=== PATIENT | female | born 1955 | race Caucasian/White ===

== ENCOUNTER 2016-11-28 21:55 | Inpatient (IN) | payer OTHER ==
[~2016-11-28] VITALS: Ht 160 cm; Wt 104.8 kg
[2016-11-28 22:18] VITALS: BP 128/94
--- NOTE | 2016-11-28 22:29 | NUR ---
PT TAKEN TO BED 2
--- NOTE | 2016-11-28 22:48 | NUR ---
Dr. Roy evaluating patient at bedside.
--- NOTE | 2016-11-28 22:49 | NUR ---
RT AT PT BEDSIDE.
[2016-11-28] MEDS ORDERED: IPRATROPIUM 0.02% 0.5 MG/2.5 ML NEBU INH ONE (22:50)
[2016-11-28] MEDS ORDERED: ALBUTEROL 0.083% 2.5 MG/3 ML NEBU INH ONE (22:50)
[2016-11-28] MEDS ORDERED: ASPIRIN 81 MG TAB.CHEW PO ONE (22:50)
[2016-11-28] MEDS ORDERED: CAPTOPRIL 12.5 MG TAB PO ONE ×2 (22:50)
[2016-11-28] MEDS ORDERED: FUROSEMIDE 100 MG/10 ML VIAL IVP ONE (22:50)
--- NOTE | 2016-11-28 22:50 | NUR ---
61 Y/O HERE C/O SOB, AND BACK PAIN THAT RADIATES TO CHEST. 02 SAT 89 % RT AT BED SIDE. CRACKLES HEARDED BILATERAL, AND EDEMA TO BILATERAL LOWER LEGS. PER PT SHA HAS A HX OF CHF. ER MD NOTIFIED. PT IN 02 NONREBREATHER MASK, 15 LT. PINK ALERT AND ORIEDTED X 4.
--- NOTE | 2016-11-28 23:00 | NUR ---
23OO PT REFUSED TO WEAR BIPAP AT THIS TIME. PLACED PT ON 3LNC.
--- NOTE | 2016-11-29 01:14 | NUR ---
1300 ml clear, straw colored urine emptied from F/C.
[2016-11-29] MEDS ORDERED: MORPHINE SULFATE 4 MG/ML SYR IVP ONE (02:10)
[2016-11-29] MEDS ORDERED: NACL 0.9% 1,000 ML IV SCH (02:14)
[2016-11-29] MEDS ORDERED: HYDROcodone/APAP 5/325 MG 1 TAB TAB PO PRN (02:15)
[2016-11-29] MEDS ORDERED: MORPHINE SULFATE 2 MG/ML SYR IVP PRN (02:15)
[2016-11-29] MEDS ORDERED: ONDANSETRON 4 MG/2 ML VIAL IVP PRN (02:15)
[2016-11-29] MEDS ORDERED: ACETAMINOPHEN 325 MG TAB PO PRN (02:15)
--- NOTE | 2016-11-29 02:45 | NUR ---
Patient will be admitted to care of DR ARDON. Admited to TELEMETRY. Will go to room 105 B. Belongings list completed. Report to KAYLIN HUNG.PT JOSUÉ BENJAMIN.
--- NOTE | 2016-11-29 03:52 | NUR ---
RECEIVED FROM ER PER PUA . MORBIDLY OBESE FEMAL ABLE TO VERBALIZE IN [place] WELL. DX. OF COPD EXACERBATION. ON 02 AT 2LPM/NC -02 SAT OF 92%. BAKER CATHETER IN PLACE AND DRAINING WELL WITH YELLOW COLORED URINE. IVF SITE TO LEFT UPPER ARM #24. CARE PLANS FOR THE NIGHT DISCUSSED WITH HER AND CALL LIGHT USE EXPLAINED TO HER. RAPID RESPONSE EXPLAINED. AFEBRILE. VITAL SIGNS 103/53 HR 92 02 SAT 92%. NO PAIN COMPLAINTS AT THIS TIME.
[2016-11-29 03:57] VITALS: BP_SYST 103; BP_SYST 120; BP_DIAS 53; BP_DIAS 69
[2016-11-29] MEDS ORDERED: PNEUMOCOCCAL VACCINE 23 MCG/0.5 ML VIAL IMVAC SCH (05:05)
[2016-11-29] MEDS ORDERED: INFLUENZA VIRUS VACCINE QUAD 0.5 ML SYR IMVAC SCH (05:05)
--- NOTE | 2016-11-29 07:37 | NUR ---
PT. NO COMPLAINTS DONE. VERBALIZES WELL. SNACK /SANDWICH GIVEN RT COMPLAINED VERY HUNGRY. ENDORSED TO THE NEXT RN FOR CONTINUITY OF CARE.
--- NOTE | 2016-11-29 07:40 | NUR ---
REPORT RECEIVED AT BEDSIDE FROM KAYLIN HUNG . PATIENT LYING IN BED, SEMI LANDON POSITION , WITH 02 VIA NC, LABORED BREATHING , DRY INTERMITTENT COUGH . DENIES CHEST PAIN , NO SOB NOTED. WITH IV CATH , INTACT, SL . PATIENT HAS BAKER CATH DRAINING WELL . BOTH LEGS WITH EDEMA. PLAN OF CARE DISCUSSED WITH , SHE VERBALIZED UNDERSTANDING. WILL CONTINUE MONITORING.
--- NOTE | 2016-11-29 07:45 | NUR ---
DR CRAMER AND RESIDENTS GROUP CAME TO SEE HER .
[2016-11-29 08:00] VITALS: BP 112/52
--- NOTE | 2016-11-29 08:45 | NUR ---
DR COYLE AND RT CALLED FOR BREATHING TX ORDERS , PATIENT C/O SOB . 02 SAT = 92%
[2016-11-29] MEDS ORDERED: methylPREDNISolone SS 125 MG in WATER STERILE 2 ML IV ONE (08:55)
[2016-11-29] MEDS ORDERED: methylPREDNISolone SS 125 MG/2 ML VIAL IVP SCH (09:30)
[2016-11-29] MEDS: ALBUTEROL SULFATE/IPRATROPIU 3 ML SOL IH PRN ×2 (09:32→16:55)
--- NOTE | 2016-11-29 09:47 | NUR ---
FAXED REVIEW TO [facility] FAX# [phone] PH# [phone]
--- NOTE | 2016-11-29 10:00 | NUR ---
PATIENT RESTING IN BED , WITH 02 VIA NC, NO SOB NOTED.
[2016-11-29] MEDS ORDERED: NITROGLYCERIN 0.4 MG TAB SL PRN (10:10)
[2016-11-29] MEDS ORDERED: DEXTROSE 50% 50 ML SYR IVP PRN (10:10)
--- NOTE | 2016-11-29 10:48 | NUR ---
ECHOCARDIOGRAM IN PROGRESS. Addendum: 11/29/16 at 1051 by Romelia Busby RN CORRECT : DARSHANA/LEG ARTERIAL AND VENOUS US IN PROGRESS
[2016-11-29] MEDS ORDERED: FUROSEMIDE 40 MG/4 ML VIAL IVP SCH (11:00)
[2016-11-29] MEDS: LEVOFLOXACIN 750 MG/D5W PREMIX 150 ML IV SCH (11:02)
[2016-11-29] MEDS: NACL 0.9% 1,000 ML IV SCH (11:02)
--- NOTE | 2016-11-29 11:15 | NUR ---
PATIENT HAS BEEN SCREENED AND CATEGORIZED HIGH NUTRITION RISK. PATIENT WILL BE SEEN WITHIN 1-2 DAYS OF ADMISSION. 11/29/16-11/30/[address]
[2016-11-29] MEDS: BLOOD GLUCOSE MONITORING 1 DEV DEV FS SCH ×3 (11:53→21:20)
[2016-11-29] MEDS: INSULIN ASPART SLIDING SCALE 100 UNITS/ML VIAL SUBQ PRN ×3 (11:54→21:25)
[2016-11-29 12:00] VITALS: BP 137/76
--- NOTE | 2016-11-29 12:30 | NUR ---
PATIENT TAKING HER LUNCH , GOOD APPETITE NOTED. NO SOB , DENIES CHEST PAIN.
[2016-11-29] MEDS: GABAPENTIN 300 MG CAP PO SCH ×2 (13:33→17:01)
[2016-11-29] MEDS: ALBUTEROL SULFATE/IPRATROPIU 3 ML SOL IH SCH ×2 (13:49→19:17)
[2016-11-29 16:00] VITALS: BP 104/66
[2016-11-29] MEDS: metFORMIN 850 MG TAB PO SCH (17:01)
--- NOTE | 2016-11-29 18:35 | NUR ---
COPY OF EKG GIVEN TO DR. TERELL AGARWAL
[2016-11-29] MEDS: BUDESONIDE 0.5 MG/2 ML NEBU INH SCH (19:17)
--- NOTE | 2016-11-29 19:26 | NUR ---
PT NOTED RECEIVING BREATHING TREATMENT, NOTED TOLERATING WELL. NO DISTRESS NOTED.
--- NOTE | 2016-11-29 19:28 | NUR ---
RECEIVED PT REPORT FROM ADA RN FOR CONTINUITY OF CARE AT BEDSIDE, PT STABLE. NO RESPIRATORY DISTRESS NOTED, NASAL CANNULA ON.
--- NOTE | 2016-11-29 19:43 | NUR ---
REPORT GIVEN AT BEDSIDE TO KAYLIN ENGEL FOR CONTINUITY OF CARE.
--- NOTE | 2016-11-29 19:57 | NUR ---
SHIFT ASSESSMENT DONE AT THIS TIME. PT IS A/O X3, NO CONFUSION NOTED. PT FOLLOWS COMMANDS AND IS COOPERATIVE. NO ACUTE RESPIRATORY DISTRESS NOTED. PT VITAL SIGNS ARE STABLE, ON 3L NASAL CANNULA WITH OXYGEN SATURATION AT 91%. PT DENIES SOB OR NAUSEA. STATES TO HAVE LOWER LEG AND BACK PAIN, WILL PROVIDE PAIN MEDICATION. LUNG SOUNDS ARE RHONCHI. BOWEL SOUNDS ARE ACTIVE. PT IV ACCESS IS TO LEFT UPPER ARM, #24G IS PATENT AND INTACT. NOTED ALL SKIN INTACT, ONLY BRUISE TO LEFT UPPER THIGH. BAKER CATHETER IN PLACE, DRAINING BY GRAVITY OF YELLOW URINE. SCD'S IN PLACE. CALL LIGHT WITHIN REACH. DISCUSSED PLAN OF CARE WITH PT, VERBALIZED UNDERSTANDING. ALL NEEDS MET. WILL CONTINUE TO MONITOR PT. SAFETY PRECAUTIONS AND FALL RISK IN PLACE.
[2016-11-29 20:00] VITALS: BP 116/63
[2016-11-29] MEDS: QUEtiapine FUMARATE 100 MG TAB PO SCH (21:21)
[2016-11-29] MEDS: CARVEDILOL 3.125 MG TAB PO SCH (21:21)
[2016-11-29] MEDS: PARoxetine 20 MG TAB PO SCH (21:21)
--- NOTE | 2016-11-29 21:21 | NUR ---
PROVIDED PT WITH PO SCHEDULED MEDICATIONS, PAIN MED AND INSULIN COVERAGE PER MD ORDERS. PT BLOOD GLUCOSE IS 326, NO SYMPTOMS SHOWN. PT REMAINS STABLE AND TOLERATED PO MEDICATIONS. SEE eMAR. WILL CONTINUE TO MONITOR. CALL LIGHT WITHIN REACH.
[2016-11-30] VITALS (7 sets, daily range): BP systolic 97–125; BP diastolic 50–61
--- NOTE | 2016-11-30 00:10 | NUR ---
VITAL SIGN REMAIN STABLE, PT OXYGEN SATURATION IS 93%, NASAL CANNULA STILL IN PLACE. NO RESPIRATORY DISTRESS. CALL LIGHT WITHIN REACH.
--- NOTE | 2016-11-30 00:50 | NUR ---
PT SLEEPING COMFORTABLY, NO RESPIRATORY DISTRESS NOTED. NASAL CANNULA IN PLACE.
[2016-11-30] MEDS: ALBUTEROL SULFATE/IPRATROPIU 3 ML SOL IH SCH ×4 (01:15→19:33)
--- NOTE | 2016-11-30 01:55 | NUR ---
PT SLEEPING, NASAL CANNULA IN PLACE. NO DISTRESS.
--- NOTE | 2016-11-30 03:40 | NUR ---
VITAL SIGNS REMAIN STABLE, PT REMAINS ON 3L NC WITH OXYGEN SATURATION AT 92%. NO ACUTE DISTRESS NOTED. WILL CONTINUE TO MONITOR.
[2016-11-30] MEDS: BLOOD GLUCOSE MONITORING 1 DEV DEV FS SCH ×4 (05:56→21:44)
--- NOTE | 2016-11-30 05:56 | NUR ---
PROVIDED PT WITH INSULIN PER SLIDING SCALE MD ORDERS, PT BLOOD GLUCOSE IS 360. PT REMAINS STABLE, NO ACUTE DISTRESS NOTED.
[2016-11-30] MEDS: INSULIN ASPART SLIDING SCALE 100 UNITS/ML VIAL SUBQ PRN ×4 (05:58→21:48)
--- NOTE | 2016-11-30 07:33 | NUR ---
ENDORSED PT TO AVERLIE RN IN STABLE CONDITION FOR CONTINUITY OF CARE AT BEDSIDE.
--- NOTE | 2016-11-30 07:40 | NUR ---
RECEIVED REPORT FROM THE ARTS ADMINISTRATOR NURSE AT BEDSIDE FOR CONTINUITY OF CARE. PATIENT IS AWAKE, ALERT, ORIENTEDX4. IV ON THE LEFT UPPER ARM, INTACT AND PARENT. IV FLUID INFUSING WELL. RT AT BEDSIDE GIVING BREATHING TREATMENT. ON 3L O2 VIA NASAL CANNULA. NO S/S SOB. SKIN INTACT. BP WAS LOW 97/58. ELEVATED LEGS AND WILL RECHECK BP. OTHER VITALS ARE WITHIN THE NORMAL LIMIT. NO S/S OF DISTRESS. SAFETY MEASURE CHECKED AND WILL CONTINUE TO MONITOR. CALL LIGHT WITHIN REACH.
[2016-11-30] MEDS: BUDESONIDE 0.5 MG/2 ML NEBU INH SCH ×2 (07:46→19:35)
[2016-11-30] MEDS ORDERED: methylPREDNISolone SS 40 MG/ML VIAL IVP SCH (08:00)
[2016-11-30] MEDS ORDERED: methylPREDNISolone SS 40 MG in WATER STERILE 1 ML IV SCH (08:00)
--- NOTE | 2016-11-30 08:30 | NUR ---
RECHECKED BLOOD PRESSURE 106/50. HELP LISINOPRIL AND CARVEDILOL DUE TO DECREASE BLOOD PRESSURE. WILL CONTINUE TO MONITOR. OTHER DUE MEDS GIVEN, PATIENT TOLERATED WELL. FAMILY AT BEDSIDE. CALL LIGHT WITHIN REACH.
[2016-11-30] MEDS: ASPIRIN 81 MG TAB.CHEW PO SCH (08:54)
[2016-11-30] MEDS: metFORMIN 850 MG TAB PO SCH ×2 (08:54→17:10)
[2016-11-30] MEDS: GABAPENTIN 300 MG CAP PO SCH ×3 (08:54→17:09)
[2016-11-30] MEDS: ATORVASTATIN 20 MG TAB PO SCH (08:54)
[2016-11-30] MEDS: LISINOPRIL 10 MG TAB PO SCH (08:56)
[2016-11-30] MEDS: FUROSEMIDE 40 MG/4 ML VIAL IVP SCH (08:57)
[2016-11-30] MEDS: CARVEDILOL 3.125 MG TAB PO SCH ×2 (08:57→21:34)
[2016-11-30] MEDS ORDERED: hePARIN / DEXT 5% PREMIX 250 ML IV SCH (09:15)
[2016-11-30] MEDS ORDERED: HEPARIN PER PHARMACY MC PRN ×2 (09:15→13:00)
--- NOTE | 2016-11-30 09:22 | NUR ---
FAXED REVIEW TO [facility] FAX# [phone] # [phone] MI[place] EXT [phone]
[2016-11-30] MEDS: NACL 0.9% 1,000 ML IV SCH (10:25)
--- NOTE | 2016-11-30 10:30 | NUR ---
PATIENT IS AWAKE AND TAKEN TO CT SCAN.
--- NOTE | 2016-11-30 10:40 | NUR ---
P.T. NOTES RECEIVED P.T. EVAL ORDER, CHART REVIEWED, ACUTE (+) DVT TO LT LE, MEDS REVIEWED AND NO ANTICOAGULANTS GIVEN YET SINCE US FINDINGS, DISCUSSED WITH CHARGE NURSE AND MD MADE AWARE OF DVT FINDING WILL HOLD P.T. EVAL UNTIL MEDS GIVEN. NRSG MADE AWARE. PVE
--- NOTE | 2016-11-30 11:00 | NUR ---
DUE MED GIVEN. GLU LEVEL CHECKED ELEVATED TO 368. INSULIN COVERAGE GIVEN. WILL CONTINUE TO MONITOR.
[2016-11-30] MEDS: LEVOFLOXACIN 750 MG/D5W PREMIX 150 ML IV SCH (11:22)
--- NOTE | 2016-11-30 12:00 | NUR ---
VITALS TAKEN WITHIN THE NORMAL LIMIT. PATIENT IS AWAKE AND EATING LUNCH. CALL LIGHT WITHIN REACH.
--- NOTE | 2016-11-30 12:44 | NUR ---
RD RECOMMENDATIONS: 1. CONTINUE CCHO 60 G DIET TOLERATED 2. PT MEETING > 75% ESTIMATED NUTRITIONAL NEEDS 3. RD WILL F/U 3-5 DAYS; MODERATE RISK.
[2016-11-30] MEDS: methylPREDNISolone SS 40 MG/ML VIAL IVP SCH ×2 (13:31→21:34)
--- NOTE | 2016-11-30 15:02 | NUR ---
HEPARIN DRIP STARTED, GIVEN THE 5100 UNIT OF BOLUS AND DRIP STARTED AT 1300UNIT/HR. PATIENT IS TOLERATING IT WELL. NO S/S OF DISTRESS. CALL LIGHT WITHIN REACH. WILL CONTINUE TO MONITOR.
[2016-11-30] MEDS: hePARIN / DEXT 5% PREMIX 250 ML IV SCH (15:14)
--- NOTE | 2016-11-30 16:00 | NUR ---
BLOOD SUGAR CHECKED AND ITS ELEVATED 334 INSULIN COVERAGE GIVE. WILL CONTINUE TO MONITOR.
[2016-11-30] MEDS: HYDROcodone/APAP 10/325 MG 1 TAB TAB PO PRN ×2 (16:09→21:41)
[2016-11-30] MEDS: WARFARIN 5 MG TAB PO SCH (17:11)
--- NOTE | 2016-11-30 19:30 | NUR ---
REPORT GIVEN TO THE NON DESTRUCTIVE EVALUATION SPECIALIST NURSE AT BEDSIDE. PATIENT IN STABLE CONDITION. ALL NEEDS MET AT THIS TIME.
--- NOTE | 2016-11-30 19:33 | NUR ---
RECEIVED PT FROM MICHA RN PT AAOX4 AMBULATES WITH ASSISTANTS IV ON LEFT UPPER ARM ON HEPARIN DRIP 1300 UNITS/H , ON TELEMETRY ST , BAKER CATH DRAINING WELL YELLOW URINE PT MORBID OBESITY INITIAL ASSESSMENT DONE
--- NOTE | 2016-11-30 21:27 | NUR ---
PTT 37.9 , FOLLOW HEPARIN PROTOCOL BOLUS 2,900 UNITS HEPARIN GIVEN AND INCREASE TO 1400 UNITS/H
--- NOTE | 2016-11-30 21:30 | NUR ---
BLOOD SUGAR TEST 433 COVERAGE WITH 18 UNITS REG INSULIN SUB Q AND
[2016-11-30] MEDS: PARoxetine 20 MG TAB PO SCH (21:33)
[2016-11-30] MEDS: QUEtiapine FUMARATE 100 MG TAB PO SCH (21:34)
--- NOTE | 2016-11-30 23:03 | NUR ---
A BIG BM PT IS ASSISTE TO THE RESTROOM SPONGE BATH GIVEN AND LINEN CHANGED
[2016-12-01] VITALS: BP 125/61
--- NOTE | 2016-12-01 | NUR ---
PT ON HEPARIN DRIP 14 ML/H NOT DISTRESS NOTED ON TELEMETRY SR REPOSITIONED Q2H
[2016-12-01] MEDS: ALBUTEROL SULFATE/IPRATROPIU 3 ML SOL IH SCH ×4 (01:10→19:26)
[2016-12-01 04:00] VITALS: BP 115/78
--- NOTE | 2016-12-01 04:00 | NUR ---
SPONGE BATH GIVEN LINEN CHANGED ON TELE SR/ST ON HEPARIN DRIP 14 ML/, NOT SOB NOTED
[2016-12-01] MEDS: methylPREDNISolone SS 40 MG/ML VIAL IVP SCH ×3 (05:08→21:23)
[2016-12-01] MEDS: hePARIN / DEXT 5% PREMIX 250 ML IV SCH ×2 (05:27→19:33)
[2016-12-01] MEDS: INSULIN ASPART SLIDING SCALE 100 UNITS/ML VIAL SUBQ PRN ×4 (05:52→21:43)
[2016-12-01] MEDS: BLOOD GLUCOSE MONITORING 1 DEV DEV FS SCH ×4 (05:57→21:27)
--- NOTE | 2016-12-01 06:04 | NUR ---
PENDING RESULT PT PTT, BLOOD SUGAR TEST 334 COVERAGE WITH 12 UNITS REG INSULIN
--- NOTE | 2016-12-01 06:24 | NUR ---
PTT 46.7 FOLLOW HEPARIN PROTOCOL NOT CHANGED CONTINUING WITH HEPARIN 14 ML/H OR 1400 UNITS/H , PT LAB WILL BE MONITORING ORDER , PT REMAIN STBLE SLEEPING NOT DISTRESS OR BLEEDING NOTED, ON TELEMETRY SR 87
--- NOTE | 2016-12-01 07:20 | NUR ---
RECEIVED REPORT FROM THE VEGETABLE THINNER NURSE AT BEDSIDE FOR CONTINUITY OF CARE. PATIENT IS AWAKE, ALERT, ORIENTEDX4. IV ON THE LEFT UPPER ARM, INTACT AND PARENT. HEPARIN DRIP INFUSING AT 1400 UNIT/HR. ON 3L O2 VIA NASAL CANNULA. NO S/S SOB. SKIN INTACT. VITALS TAKEN AND WITHIN THE NORMAL LIMIT. INITIAL ASSESSMENT DONE. NO S/S OF DISTRESS. SAFETY MEASURE CHECKED AND WILL CONTINUE TO MONITOR. CALL LIGHT WITHIN REACH.
[2016-12-01] MEDS: BUDESONIDE 0.5 MG/2 ML NEBU INH SCH ×2 (07:41→19:27)
[2016-12-01 07:52] VITALS: BP 118/69
--- NOTE | 2016-12-01 08:30 | NUR ---
DUE MED GIVEN AND NORCO GIVEN FOR PATIENT'S COMPLAINED OF LEG AND BACK PAIN. WILL CONTINUE TO MONITOR.
[2016-12-01] MEDS: FUROSEMIDE 40 MG/4 ML VIAL IVP SCH (08:42)
[2016-12-01] MEDS: metFORMIN 850 MG TAB PO SCH ×2 (08:42→17:32)
[2016-12-01] MEDS: ATORVASTATIN 20 MG TAB PO SCH (08:42)
[2016-12-01] MEDS: GABAPENTIN 300 MG CAP PO SCH ×3 (08:42→17:32)
[2016-12-01] MEDS: ASPIRIN 81 MG TAB.CHEW PO SCH (08:42)
[2016-12-01] MEDS: CARVEDILOL 3.125 MG TAB PO SCH ×2 (08:43→21:24)
[2016-12-01] MEDS: HYDROcodone/APAP 10/325 MG 1 TAB TAB PO PRN ×4 (08:43→21:47)
[2016-12-01] MEDS: LISINOPRIL 10 MG TAB PO SCH (08:44)
--- NOTE | 2016-12-01 09:59 | NUR ---
P.T. NOTES CHART REVIEWED, PT WAS PLACED ON HEPARIN DRIP. CLEARED BY NRSG FOR P.T. EVAL; PT FOUND ASLEEP EASILY ROUSABLE. PT OX3, DENIES OF DYSPNEA, STATES OF PAIN ON HER KNEES, BACK AND CHEST, "EVER SINCE I GOT HERE" WHEN ASKED TO PUT A NUMBER PT DID NOT STATE. THEN P.T. EXPLAINED WE WILL ESTABLISH MOBILITY PER PT.. EVAL PT SAID "GOOD" VS WERE BEING TAKEN AND FOLLOWS 131/79MMHG, HR: 87, SPO2 ON CONT O2 2.5L VIA NC 88%. PT DENIES OF HOME O2 USE, LIVES WITH FAMILY AND CAREGIVER AT HOME WAS INDEP WITH MOBILITY NO USE OF ASSISTIVE DEVICE. THIS P.T. ENCOURAGED PT TO DO DIAPHRAGMATIC BREATHING WITH SPO2 MEASURED HIGHEST AT 90% PT [facility] THIS P.T SAID PT SAID THAT IS CORRECT BUT IS NOW [facility], PT THEN SAID "IT'S MY PREROGATIVE" THEN PT STARTED GETTING UPSET "I WILL ONLY WALK TO WALK OUT OF HERE." EXPLAINED WE WILL NEED CONTINUOUS O2 HER SPO2 IS LOW EVEN AT REST. PT THEN FURTHER GOT MORE UPSET "NO I'M NOT DOING IT" THIS P.T FURTHER EXPLAINED RATIONALE BUT PT CONTINUES TO REFUSE SAYING "NO I WON'T DO IT." THEN FURTHER ASKED "DO YOU WANT US TO COME BACK AT A LATER TIME?" PT SAID "NO I WON'T DO IT, I JUST WANT TO GO HOME." NRSG MADE AWARE OF PT'S REFUSAL DESPITE ENCOURAGEMENT AND SPO2 DESATURATION EVEN AT REST BUT NO /CO DYSPNEA. PVEX2
[2016-12-01] MEDS: NACL 0.9% 1,000 ML IV SCH (10:25)
--- NOTE | 2016-12-01 10:31 | NUR ---
PTT IS 45.0 PROTOCOL FOLLOWED. GIVEN 2900 UNIT OF BOLUS AND INCREASE DRIP BY 100UNIT/HR. NOW RATE IS 1500UNIT/HR. WILL CONTINUE TO MONITOR.
--- NOTE | 2016-12-01 10:33 | NUR ---
PATIENT IS AWAKE AND EATING BREAKFAST. KEPT ASKING FOR SUGAR, EDUCATE PATIENT THAT HER BLOOD SUGAR HAS BEEN HIGH AND IT'S BEEN AROUND 300. EXPLAINED WHAT HIGH BLOOD SUGAR CAN DO. ALSO EXPLAINED TO HER THAT SHE NEED TO LIMIT HER SUGAR INTAKE. PATIENT APPEARED ANGRY AND SAID SHE DOES NOT CARE AND HER SUGAR HAS BEEN HIGH. WILL CONTINUE TO MONITOR AND REINFORCE THE EDUCATION.
--- NOTE | 2016-12-01 11:30 | NUR ---
BLOOD SUGAR CHECKED. ELEVATED 412 COVERAGE OF NOVOLOG GIVE. PATIENT TOLERATED WELL.
[2016-12-01] MEDS: LEVOFLOXACIN 750 MG/D5W PREMIX 150 ML IV SCH (11:55)
[2016-12-01 12:00] VITALS: BP 109/76
--- NOTE | 2016-12-01 12:00 | NUR ---
VITALS TAKEN AND WITHIN NORMAL LIMIT. CALL LIGHT WITHIN REACH WILL CONTINUE TO MONITOR
--- NOTE | 2016-12-01 12:10 | NUR ---
CM NOTE CONCURRENT REVIEW FAXED TO [facility] / FAX# [phone], C: [phone]
--- NOTE | 2016-12-01 12:20 | NUR ---
SS NOTE: SENT SNF PLACEMENT INQUIRIES TO: - [facility] - [facility] - [facility] - [facility] - [facility] - [facility]
--- NOTE | 2016-12-01 14:00 | NUR ---
CT CHEST ANGIO W/WO CONTRAST. PATIENT IS MADE AWARE AND SIGNED CONSENT. IV 20 GAUGE IS INSERTED ON THE RIGHT UPPER ARM.
--- NOTE | 2016-12-01 15:21 | NUR ---
SS NOTE: PER JANET AT [facility], SHE CONTACTED [facility] AND [facility] STATED THAT SINCE PT'S MEDI[facility] IS IN [facility], [facility] IS AT RISK FOR SNF. SHE ALSO STATED THAT THEY DO NOT HAVE A [facility] CONTRACT SO THEY WOULD NEED A LETTER OF AGREEMENT BEFORE ACCEPTING PT. PER LILI FROM [facility], NO HALFWAY FEMALE BEDS AVAILABLE PER REDD [facility] [place], NO TUBING ASSEMBLER FEMALE BEDS AVAILABLE
[2016-12-01 16:00] VITALS: BP 135/77
[2016-12-01] MEDS ORDERED: WARFARIN 5 MG TAB PO SCH (17:00)
--- NOTE | 2016-12-01 17:00 | NUR ---
PATIENT'S DUE MED GIVEN, PATIENT TOLERATED WELL. CALL LIGHT WITHIN REACH.
--- NOTE | 2016-12-01 17:10 | NUR ---
PTT IS 40.5 PROTOCOL FOLLOWED. GIVEN 2900 UNIT OF BOLUS AND INCREASE DRIP BY 100UNIT/HR. NOW RATE IS 1600UNIT/HR. WILL CONTINUE TO MONITOR.
[2016-12-01] MEDS: WARFARIN 5 MG TAB PO SCH (17:34)
--- NOTE | 2016-12-01 19:30 | NUR ---
RECEIVED REPORT FROM DAY RN AT BEDSIDE. PATIENT IS AAOX4 RESTING IN BED. PATIENT IS ON O2 VIA NC AT 3L, NO SOB NOTED AT THIS TIME. PATIENT HAS IV TO RIGHT UPPER ARM #20 WITH HEPARIN INFUSING WELL. PATIENT HAS BAKER DRAINING. DISCUSSED PLAN OF CARE WITH PATIENT, PATIENT VERBALIZED UNDERSTANDING. CALL LIGHT WITHIN REACH. WILL CONTINUE TO MONITOR.
--- NOTE | 2016-12-01 19:34 | NUR ---
REPORT GIVEN TO STUDENT SERVICES COORDINATOR NURSE AT BEDSIDE. PATIENT IS IN STABLE CONDITION AND ALL NEED MET AT THIS TIME.
[2016-12-01 20:00] VITALS: BP 126/81
[2016-12-01] MEDS: PARoxetine 20 MG TAB PO SCH (21:25)
[2016-12-01] MEDS: QUEtiapine FUMARATE 100 MG TAB PO SCH (21:38)
--- NOTE | 2016-12-01 21:43 | NUR ---
PM MEDS GIVEN, PATIENT TOLERATED WELL, CALL LIGHT WITHIN REACH. WILL CONTINUE TO MONITOR.
--- NOTE | 2016-12-01 23:00 | NUR ---
PATIENT RESTING IN BED, SO SOB OR SIGN OF DISTRESS, CALL LIGHT WITHIN REACH. WILL CONTINUE TO MONITOR.
--- NOTE | 2016-12-02 00:30 | NUR ---
PATIENT TAKEN OFF UNIT FOR CT
--- NOTE | 2016-12-02 01:15 | NUR ---
PATIENT BACK ON UNIT FROM CT. PATIENT IS ALERT AND ORIENTED, VITAL SIGNS STABLE. PROVIDED PATIENT WITH WATER AND ICE CHIPS PER REQUEST. CALL LIGHT WITHIN REACH. WILL CONTINUE TO MONITOR.
[2016-12-02 01:28] VITALS: BP 123/74
--- NOTE | 2016-12-02 01:45 | NUR ---
PROVIDED PATIENT WITH SANDWICH, PATIENT NOW RESTING IN BED, CALL LIGHT WITHIN REACH. WILL CONTINUE TO MONITOR.
[2016-12-02] MEDS: ALBUTEROL SULFATE/IPRATROPIU 3 ML SOL IH SCH ×4 (01:52→20:10)
--- NOTE | 2016-12-02 03:34 | NUR ---
PTS PTT VALUE CAME BACK 33.7. PER PROTOCOL FROM PHARMACY, GAVE BOLUS OF 5,900 UNITS AND INCREASED DRIP BY 300U/HR TO 1900U/H. PATIENT SLEEPING, NO SIGN OF DISTRESS, CALL LIGHT WITHIN REACH. WILL CONTINUE TO MONITOR.
[2016-12-02] MEDS: hePARIN / DEXT 5% PREMIX 250 ML IV SCH (03:39)
[2016-12-02 04:00] VITALS: BP 129/84
[2016-12-02] MEDS: methylPREDNISolone SS 40 MG/ML VIAL IVP SCH ×3 (04:04→20:53)
--- NOTE | 2016-12-02 04:23 | NUR ---
VITAL SIGNS STABLE, PATIENT SLEEPING, NO SOB OR SIGN OF DISTRESS, CALL LIGHT WITHIN REACH, WILL CONTINUE TO MONITOR.
[2016-12-02] MEDS: BLOOD GLUCOSE MONITORING 1 DEV DEV FS SCH ×4 (05:58→20:53)
[2016-12-02] MEDS: INSULIN ASPART SLIDING SCALE 100 UNITS/ML VIAL SUBQ PRN ×4 (06:00→21:32)
--- NOTE | 2016-12-02 06:08 | NUR ---
BLOOD SUGAR CHECK, 327, PATIENT RECEIVED 12 UNITS INSULIN PER MD ORDER AND PER SLIDING SCALE.
--- NOTE | 2016-12-02 07:10 | NUR ---
RECEIVED CALL FOR CRITICAL LAB VALUES OF PT 46.6 AND INR 4.8. PAGED RESIDENTS AT EXT [phone], NO ANSWER, WILL CALL BACK.
--- NOTE | 2016-12-02 07:15 | NUR ---
SPOKE TO DR CRAMER ABOUT CRITICAL LAB VALUES, PHYSICIAN TO SEE PATIENT.
--- NOTE | 2016-12-02 07:30 | NUR ---
RECEIVED PT ON BED AAOX4. NO SOB NOTED, ON 3LPM O2 VIA NASAL CANNULA, SATS BETWEEN 90-91%. NO C/O PAIN AT THIS TIME. IV TO RT AC , RT UPPER AR, AND LT FORE ARM PATENT AND INTACT. ON HEPARIN DRIP AT 1900 UNITS/HR. CHEST DIMINISHED AIR ENTRY TO THE BASES. ABDOMEN SOFT, BOWEL SOUNDS PRESENT. WITH BAKER DRAINING LARGE AMOUNTS OF CLEAR YELLOW URINE NOTED. INSTRUCTED PT TO CALL FOR ASSISTANCE, CALL LIGHT WITHIN REACH. PT VERBALIZED UNDERSTANDING.
--- NOTE | 2016-12-02 07:30 | NUR ---
ENDORSED PATIENT TO DAY SHIFT RN AT BEDSIDE, PATIENT IN STABLE CONDITION.
[2016-12-02] MEDS: BUDESONIDE 0.5 MG/2 ML NEBU INH SCH ×2 (07:43→20:10)
[2016-12-02 08:00] VITALS: BP 122/69
[2016-12-02] MEDS: metFORMIN 850 MG TAB PO SCH ×2 (08:00→17:00)
[2016-12-02] MEDS: FUROSEMIDE 40 MG/4 ML VIAL IVP SCH (09:31)
[2016-12-02] MEDS: INSULIN DETEMIR 100 UNITS/ML 10 ML VIAL SUBQ SCH (09:34)
[2016-12-02] MEDS: ASPIRIN 81 MG TAB.CHEW PO SCH (09:35)
[2016-12-02] MEDS: GABAPENTIN 300 MG CAP PO SCH ×3 (09:35→17:36)
[2016-12-02] MEDS: LISINOPRIL 10 MG TAB PO SCH (09:36)
[2016-12-02] MEDS: CARVEDILOL 3.125 MG TAB PO SCH ×2 (09:36→20:54)
[2016-12-02] MEDS: ATORVASTATIN 20 MG TAB PO SCH (09:36)
[2016-12-02] MEDS: LEVOFLOXACIN 750 MG/D5W PREMIX 150 ML IV SCH (10:00)
[2016-12-02] MEDS: HYDROcodone/APAP 10/325 MG 1 TAB TAB PO PRN ×3 (10:00→17:59)
--- NOTE | 2016-12-02 10:30 | NUR ---
HEPARIN DRIP HELD FOR 1 HOUR, THEN DRIP WILL BE REDUCEDB BY 200 UNITS/HR. PTT WILL BE DRAWN AT 1630 HRS.
--- NOTE | 2016-12-02 11:30 | NUR ---
HEPARIN DRIP DISCONTINUED ORDERED.
--- NOTE | 2016-12-02 11:46 | NUR ---
CM NOTE CONCURRENT REVIEW FAXED TO [facility] / FAX# [phone]
[2016-12-02 12:00] VITALS: BP 121/68
--- NOTE | 2016-12-02 12:30 | NUR ---
GREGORY Madsen/ CB HINTON FOR [facility] CONTRACTED [facility] FOR PLACEMENT. Addendum: 12/02/16 at 1419 by Edison Irwin RN C: [phone] [id number]
--- NOTE | 2016-12-02 14:20 | NUR ---
CM NOTE 2ND MESSAGE LEFT FOR MARY JANE, CM FOR [facility]
--- NOTE | 2016-12-02 14:45 | NUR ---
PHYSICAL THERAPY ON GOING AT THE BEDSIDE.
--- NOTE | 2016-12-02 15:15 | NUR ---
CM NOTE TRANSFERRED TO [facility] GUILLEN CM FOR [facility] ([phone] [id number]); LM
--- NOTE | 2016-12-02 15:24 | NUR ---
SS NOTE: [facility], NO SUPERVISOR TUMBLERS BEDS AVAILABLE AT THIS TIME PER SOPHIE FROM [facility], NO INTERMEDIATE BEDS AVAILABLE AT THIS TIME MESSAGE LEFT FOR PAULY IN ADMISSIONS AT [facility] TO FOLLOW UP ON PT'S REFERRAL PER PREM FROM [facility], NO FEMALE BEDS AVAILABLE AT THIS TIME
--- NOTE | 2016-12-02 15:52 | NUR ---
CM NOTE 2ND LM W/ CB GUILLEN FOR HANDY; PROVIDED CM # TO CB SHARMA FOR FOLLOW UP.
[2016-12-02 16:00] VITALS: BP 118/59
--- NOTE | 2016-12-02 16:55 | NUR ---
ASSISTED PT IN AMBULATING INSIDE THE ROOM. ACTIVITY TOLERATED WELL. NO SOB NOTED. 02 SATS ON ROOM BETWEEN 88-99%
[2016-12-02] MEDS ORDERED: WARFARIN 5 MG TAB PO SCH (17:00)
[2016-12-02] MEDS: NACL 0.9% 1,000 ML IV SCH (17:36)
--- NOTE | 2016-12-02 19:09 | NUR ---
PT AWAKE, WATCHING TV. NO SOB NOTED. NO COMPLAINTS MADE. WILL ENDORSE TO NEXT SHIFT NURSE FOR CONTINUITY OF CARE.
--- NOTE | 2016-12-02 19:30 | NUR ---
RECEIVED REPORT FROM DAY RN AT BEDSIDE, PATIENT IS AAO X4 RESTING IN BED WATCHING TV. PATIENT HAS O2 VIA NC @3L, NO SOB OR SIGN OF DISTRESS NOTED, PATIENT HAS IV TO RAC #2O, BRITTANY #20 AND LFA #20, ALL IVS PATENT AND INTACT. PATIENT HAS BAKER DRAINING. DISCUSSED PLAN OF CARE WITH PATIENT, PATIENT VERBALIZED UNDERSTANDING CALL LIGHT WITHIN REACH. WILL CONTINUE TO MONITOR.
[2016-12-02 20:00] VITALS: BP 108/62
[2016-12-02] MEDS: QUEtiapine FUMARATE 100 MG TAB PO SCH (20:53)
[2016-12-02] MEDS: PARoxetine 20 MG TAB PO SCH (20:54)
--- NOTE | 2016-12-02 21:06 | NUR ---
ADMINISTERED PM MEDS, PATIENT TOLERATED WELL. PATIENT STATED A FRIEND WAS BRINGING HER A BIBLE, UPON ENTERING ROOM PATIENT'S FRIEND DROPPED OF ITEM, DID NOT SEE WHAT IT WAS, PATIENT PUT IT IN HER BACKPACK, WHEN I GOT CLOSE TO PATIENT, PATIENT BECAME UNEASY AND STATED "WHY ARE YOU ALL UP IN MY BUSINESS?" I EXPLAINED TO PATIENT I WAS JUST CHECKING HER BLOOD SUGAR. PATIENT STATED, "I JUST NEED TO SMOKE, WHEN CAN I GET UP?" TOLD PATIENT THIS IS NON SMOKING FACILITY AND SHE CANNOT SMOKE, BUT THAT SHE MAY GET UP AND WALK IN HER ROOM. PATIENT GOT UPSET AND STATED SHE JUST WANTED TO GO HOME, AND SHE SHOULDNT BE TREATED LIKE SHE IS IN DETENTION. PATIENT STATED ,"WHAT, ITS NOT LIKE I HAVE A CIGARETTE OR ANYTHING." PATIENT ALSO HAD REMOVED OXYGEN, PATIENT HAS HISTORY OF DESATING W/O O2, ASKED PATIENT IF SHE COULD PLEASE PUT IT ON AND PT STATED, " I CAN BREATHE, I DONT NEED IT." PATIENT THEN ASKED TO SPEAK TO CHARGE NURSE BECAUSE OF THE WAY SHE IS BEING TREATED. PT STATED SHE IS NOT A CHILD. GOT THE CHARGE NURSE SUDARSHAN, CHARGE NURSE SPOKE TO PATIENT AND PATIENT ASKED AGAIN TO SMOKE, CHARGE NURSE ALSO EXPLAINED THIS IS NON SMOKING FACILITY. PATIENT THEN ASKED FOR SODA AND SANDWICH AND STATED I WOULD NOT GET IT FOR HER, ALTHOUGH I EXPLAINED TO PATIENT SHE MAY HAVE FOOD AFTER I TAKE HER BLOOD SUGAR. CHARGE NURSE ORDERED SODA AND SANDWICH FOR PATIENT. WILL PROVIDE AND WILL CONTINUE TO MONITOR PATIENT.
--- NOTE | 2016-12-02 22:50 | NUR ---
PATIENT SLEEPING, NO SOB OR SIGN OF DISTRESS, CALL LIGHT WITHIN REACH. WILL CONTINUE TO MONITOR.
[2016-12-03] VITALS: BP 109/54
[2016-12-03] MEDS: HYDROcodone/APAP 10/325 MG 1 TAB TAB PO PRN ×6 (00:09→21:41)
--- NOTE | 2016-12-03 00:21 | NUR ---
VITALS SIGNS STABLE, PATIENT C/O PAIN IN HER KNEE, ADMINISTERED NORCO PER MD ORDER. CALL LIGHT WITHIN REACH. WILL CONTINUE TO MONITOR.
--- NOTE | 2016-12-03 00:42 | NUR ---
WENT IN PATIENTS ROOM TO CHECK LEADS FOR TELE MONITOR. PATIENT WAS ASLEEP WITH MOUTH OPEN AND NORCO WAS SITTING ON PATIENT'S TONGUE. TRIED TO WAKE PATIENT UP TO TAKE THE NORCO WITH MORE WATER BUT PATIENT SHOOK HER HEAD NO SO NORCO WAS REMOVED FROM PATIENT'S MOUTH AND WASTED IN THE SHARPS CONTAINER. CHARGE NURSE SUDARSHAN LAWS.
--- NOTE | 2016-12-03 00:45 | NUR ---
DISREGARD PAIN ASSESSMENT, NORCO WAS NOT ADMINISTERED, SEE OTHER NURSING NOTE Addendum: 12/03/16 at 0047 by Sarah Boo RN Amended: Links added.
[2016-12-03] MEDS: ALBUTEROL SULFATE/IPRATROPIU 3 ML SOL IH SCH ×4 (01:14→19:52)
--- NOTE | 2016-12-03 02:00 | NUR ---
PATIENT SLEEPING, NO SOB OR SIGN OF DISTRESS NOTED, CALL LIGHT WITHIN REACH. WILL CONTINUE TO MONITOR.
[2016-12-03 04:00] VITALS: BP 123/55
--- NOTE | 2016-12-03 04:20 | NUR ---
PATIENT UP RESTING IN BED, PATIENT OVERHEARD ASKING CNAS TO GET UP AND SMOKE, CNAS REINFORCED TO PATIENT THIS IS A NON SMOKING FACILITY AND PATIENT MAY NOT GO OUTSIDE. PATIENT STATED, "IM NOT IN RESIDENTIAL, THIS IS NOT A RESIDENTIAL" PATIENT STATES SHE "CANT WAIT TO GO HOME BECAUSE SHE IS TIRED OF BEING TREATED LIKE THIS" PATIENT STATED SHE WAS HUNGRY,PROVIDED PATIENT WITH SNACK AND COFFEE. WILL CONTINUE TO MONITOR. VITAL SIGNS STABLE.
[2016-12-03] MEDS: methylPREDNISolone SS 40 MG/ML VIAL IVP SCH (04:55)
--- NOTE | 2016-12-03 05:32 | NUR ---
PATIENT ASKED FOR PAIN PILL FOR PAIN IN LEGS, ADMINISTERED PAIN MED PER MD ORDER, ASKED PATIENT TO SHOW SHE SWALLOWED PILL, PATIENT STATED, "NO GET OUT OF HERE, I SWALLOWED IT" EXPLAINED TO PATIENT WE CANT KEEP GIVING PAIN MEDICATION IF SHE DOES NOT SWALLOW IT, AND THAT SHE CANNOT SAVE IT, PATIENT LIFTED UP HER TONGUE AND ORION WAS SITTING THERE. EXPLAINED TO PATIENT SHE NEEDS TO SWALLOW PILL PATIENT BECAME ANGRY AND SAID "I DONT HAVE TO SHOW YOU." THEN SAW PILL ON TOP OF PATIENT'S TONGUE. EXPLAINED TO PATIENT WE WOULD HAVE TO REPORT TO MD THAT PATIENT IS TRYING TO SAVE HER PILLS, PATIENT THEN STATED. "OKAY, OKAY, ILL TAKE IT". CONFIRMED PATIENT SWALLOWED IT. WILL CONTINUE TO MONITOR.
[2016-12-03] MEDS: INSULIN ASPART SLIDING SCALE 100 UNITS/ML VIAL SUBQ PRN ×5 (06:23→21:32)
--- NOTE | 2016-12-03 06:59 | NUR ---
RECEIVED CALL FROM LAB, CRITICAL VALUES OF PT 48.9 INR 5.0[address] REPORT[address] TO DR VINCENT. NO ORDERS RECEIVED. PHYSICIAN TO SEE PATIENT.
[2016-12-03] MEDS: BUDESONIDE 0.5 MG/2 ML NEBU INH SCH ×2 (07:03→19:52)
--- NOTE | 2016-12-03 07:20 | NUR ---
ENDORSED PATIENT TO DAY RN AT BEDSIDE, PATIENT IN STABLE CONDITION.
--- NOTE | 2016-12-03 07:21 | NUR ---
RECEIVED REPORT FROM THE NIGHTSHIFT NURSE AT BEDSIDE. I INTRODUCED MYSELF AND UPDATE THE BOARD. PT IS AWAKE AND ALERT. PT STATES SHE WANTS TO GET UP AND GO OUTSIDE. I EDUCATED PT THAT SHE IS NOT TO GO OUTSIDE B/C OF HOSPITAL POLICY. SHE WANTED TO GO HOME TODAY. SHE STATES SHE HAS BEEN HERE WAY TOO LONG. I EDUCATED HER ABOUT AMA AND PROPER DISCHARGE. SHE IS WILLING TO WAIT FOR THE DR TO D/C HER BUT IF HE DOESN'T COME SOON SHE WILL LEAVE AMA. NOTED NC O2 AT 2L, I NOTED THE MULTIPLE IV'S R AC 20G SL, BRITTANY 20G SL; AND L FA 20 NS AT 20ML/HR. PT IS SOB AND BREATHING IS LABORED DESPITE THE NC. NOTED THE BAKER CATH AT 250ML IN BAG. WILL CONTINUE TO MONITOR PT.
[2016-12-03] MEDS: BLOOD GLUCOSE MONITORING 1 DEV DEV FS SCH ×4 (07:30→21:30)
[2016-12-03 08:00] VITALS: BP 129/76
[2016-12-03] MEDS: metFORMIN 850 MG TAB PO SCH ×2 (08:00→17:00)
[2016-12-03] MEDS: GABAPENTIN 300 MG CAP PO SCH ×3 (08:43→17:19)
[2016-12-03] MEDS: ASPIRIN 81 MG TAB.CHEW PO SCH (08:43)
[2016-12-03] MEDS: FUROSEMIDE 40 MG/4 ML VIAL IVP SCH (08:43)
[2016-12-03] MEDS: CARVEDILOL 3.125 MG TAB PO SCH ×2 (08:44→20:10)
[2016-12-03] MEDS: INSULIN DETEMIR 100 UNITS/ML 10 ML VIAL SUBQ SCH (08:44)
[2016-12-03] MEDS: LISINOPRIL 10 MG TAB PO SCH (08:44)
[2016-12-03] MEDS: ATORVASTATIN 20 MG TAB PO SCH (08:45)
--- NOTE | 2016-12-03 08:45 | NUR ---
ADMINISTERED MORNING MEDS. PT TOLERATED WELL. HELD METFORMIN D/T THE CONTRAST SHE HAD WHILE GETTING HER HER CT. TODAY WILL BE THE LAST DAY TO TOLD. SHE MAY RESUME TOMORROW. WANTED ANOTHER CREAM OF WHEAT. ORDERED HER ANOTHER. WILL CONTINUE TO MONITOR PT.
--- NOTE | 2016-12-03 10:00 | NUR ---
PT HAVING A BM IN BED. C/O OF DISCOMFORT IN HER VAGINA D/T THE BAKER CATH. CHECKED ON BAKER. NO PROBLEM WITH PLACEMENT. WILL CALL TYPING OFFICE WORKER TO CLEAN PT WHEN DONE.
--- NOTE | 2016-12-03 10:09 | NUR ---
CM NOTE FAXED REVIEW TO [facility] FAX# [phone] PH# [phone] MINDY EXT [phone]
[2016-12-03] MEDS: NACL 0.9% 1,000 ML IV SCH (10:25)
--- NOTE | 2016-12-03 10:59 | NUR ---
SS NOTE: [phone] ARE WILLING TO ACCEPT IF [facility] WILL PROVIDE A LEVEL 3 AUTH FOR THEM. [facility] [place]
[2016-12-03] MEDS ORDERED: LEVOFLOXACIN 750 MG/D5W PREMIX 150 ML IV SCH (11:00)
--- NOTE | 2016-12-03 11:07 | NUR ---
0919 RECEIVED A CALL FROM MINDY VIVAR AT [facility] AND SHE STATED THAT [facility] IS RESPONSIBLE FOR [facility] COVERAGE.
[2016-12-03 12:00] VITALS: BP 132/83
--- NOTE | 2016-12-03 12:56 | NUR ---
CM NOTE PER RANI PH# [phone] EXT [phone], ACCEPTING FACILITY AUTH# [id number] AND TO USE [facility] PH# [phone]. SHE SAID [facility] WILL NOT NEED AN AUTH# BECAUSE THEY'RE CONTRACTED WITH [facility]. Addendum: 12/03/16 at 1414 by Terri Bazan CM SPOKE WITH RANI PH# [phone] EXT [phone] THE AUTH# SHE GAVE EARLIER IS FOR THIS HOSPITAL ADMISSION. SHE SAID THAT THE AUTH# FOR THE ACCEPTING FACILITY [facility] IS AUTH# [id number]
--- NOTE | 2016-12-03 13:33 | NUR ---
PT REQUESTED A PAIN MEDICATION. PAIN LEVEL AT 5/10. ADMINISTERED NORCO. CHECKED THE MOUTH TO MAKE SURE SHE HAD SWALLOWED IT. PT TOLERATED WELL.
--- NOTE | 2016-12-03 14:24 | NUR ---
JUST GOT BACK FROM [facility]UNCH. HEARD THE COMMOTION ABOUT PT GOING OUTSIDE TO SMOKE. PT IS SAFE, BACK IN THE ROOM WITH A FRUIT FARMER. PT HAD PULLED OUT THE IV WHEN SHE DECIDED TO GO OUTSIDE. SECURITY CONFISCATED THE STUDENT RECORDS COORDINATOR. I NOTIFIED HER THAT IF SHE DOES GO OUT AGAIN. SHE WOULD HAVE TO LEAVE THE PREMISES. PT VERBALIZED UNDERSTANDING. TALKED TO THE CHARGE NURSE ABOUT MOVING PT TO A ROOM CLOSER TO THE NURSING STATION. SHE WILL BE MOVED TO RM 123. HOT ROLL INSPECTOR IS PREPARING THE ROOM AND WILL GET PT AND ALL PERSONAL BELONGINGS AND MOVE HER TO RM 123B. WILL CONTINUE TO MONITOR PT.
[2016-12-03] MEDS ORDERED: QUETIAPINE FUM100 M1 PO (15:03)
[2016-12-03] MEDS ORDERED: ACETAMINOPHEN325 M2 PO (15:03)
[2016-12-03] MEDS ORDERED: DEXTROSE 50 ML50 M3 IVP (15:03)
[2016-12-03] MEDS ORDERED: PULMICORT0.5 MG/2 M INH (15:03)
[2016-12-03] MEDS ORDERED: ASPIRIN ADULT L81 M1 PO (15:03)
[2016-12-03] MEDS ORDERED: ATORVASTATIN CA20 MG PO (15:03)
[2016-12-03] MEDS ORDERED: ACETAMINOPHEN &1 TA1 PO (15:03)
[2016-12-03] MEDS ORDERED: LASIX10 MG/M2 IVP (15:03)
[2016-12-03] MEDS ORDERED: NOVOLOG100 UNIT/1 SUBQ (15:03)
[2016-12-03] MEDS ORDERED: LEVEMIR100 U/ML SUBQ (15:03)
[2016-12-03] MEDS ORDERED: CARVEDILOL3.125 MG PO (15:03)
[2016-12-03] MEDS ORDERED: LISINOPRIL10 M1 PO (15:03)
[2016-12-03] MEDS ORDERED: NOVAPLUS ONDA2 MG/M1 IVP (15:03)
[2016-12-03] MEDS ORDERED: GABAPENTIN300 M3 PO (15:03)
[2016-12-03] MEDS ORDERED: IPRATROPIUM BROM3 M1 IH ×2 (15:03)
[2016-12-03] MEDS ORDERED: PAXIL20 M1 PO (15:03)
[2016-12-03] MEDS ORDERED: BLOOD GLUCOSE1 EACH FS (15:03)
[2016-12-03] MEDS ORDERED: LEVAQUIN750 MG IV (15:03)
[2016-12-03] MEDS ORDERED: GLUCOPHAGE850 MG PO (15:03)
[2016-12-03] MEDS ORDERED: FLORASTOR 33 MG1 CAP PO (15:04)
--- NOTE | 2016-12-03 15:35 | NUR ---
RECEIVED ORDER FROM FOR D/C. SPOKE WITH MAO ABOUT PLACEMENT. NO WORD YET FOR BED. SHE WILL F/U WITH ME WHEN PLACEMENT IS SECURED. UNTIL THEN SHE IS HERE, UNDER MY CARE. WILL CONTINUE TO MONITOR PT.
--- NOTE | 2016-12-03 16:13 | NUR ---
ACCORDING TO [facility] BARRON PH# [phone], CATHY EXT [phone], THEIR CONTRACTED TRANSPORTATION TO USE TO TRANSFER PATIENT TO SNF, ONCE A BED IS AVAILABLE, IS [facility] PH# [phone]. ACCORDING TO CATHY, [facility] WILL NOT ASK FOR AN AUTH# FOR TRANSPORTATION BECAUSE THEY'RE CONTRACTED WITH THEM. CHARGE NURSE ESTEBAN EXT [phone] AWARE.
--- NOTE | 2016-12-03 16:44 | NUR ---
ON WILL CALL TRANSPORT FOR PATIENT SET UP WITH [facility] ATTN: ZEINAB LEARY# [phone]. PLEASE CALL [facility] FOR PATIENT PARKING REGULATION ENFORCEMENT OFFICER ONCE A ROOM IN SNF IS AVAILABLE. CHARGE NURSE ESTEBAN ROSALES [phone] AWARE
--- NOTE | 2016-12-03 16:46 | NUR ---
CHARGE NURSE ESTEBAN EXT [phone] AWARE
[2016-12-03 17:34] VITALS: BP 105/66
--- NOTE | 2016-12-03 17:37 | NUR ---
SPOKE WITH RN MANPOWER DEVELOPMENT MANAGER JANIE FROM [facility] ([phone]) AND STATED PT'S NAME IS NOT ON THE LIST FOR ADMIT AND WILL CALL BACK IF SHE CAN FIND A BED. LOCO-RN MANPOWER DEVELOPMENT MANAGER ALSO SPOKE WITH JANIE AND MADE AWARE. TOLD JANIE THAT WE ALREADY RECEIVED A FAX FROM [facility] AUTHORIZATION NUMBER FOR SNF ([id number]). FAXED IS ATTACHED TO PT'S CHART GIVEN BY CATHY TEL #: [phone] EXT [phone]. PT'S TRANSPORTATION IS [facility] AND WILL BE "WILL CALL".
--- NOTE | 2016-12-03 17:52 | NUR ---
[facility] CALLED, TRANSPORT TENTATIVELY SET FOR 7:30PM. I DID INFORM THEM THAT WE DON'T HAVE A BED YET. WILL NEED TO CALL [facility] BACK AND LET THEM KNOW, NO BED. WE WILL CALL ONCE BED IS AVAILABLE. WILL NEED TO ENDORSE TO TOOL CLERK PER ESTEBAN.
--- NOTE | 2016-12-03 18:00 | NUR ---
GOT A CALL FROM JANIE DELEON SUP FROM [facility], STATED THAT THEY DO NOT HAVE A BED AND THEY CANNOT ACCEPT PT PER THEIR ADMISSION DIRECTOR JANIE GARCIA. LOCO EWING SUP MADE AWARE THAT PT IS NOT GOING TO [facility].
--- NOTE | 2016-12-03 18:05 | NUR ---
CALLED [place] DIRECTOR OF CASE MANAGEMENT AND MADE AWARE OF PT NOT ACCEPTED BY [facility]. INDIA STATED SHE WILL FOLLOW UP AND WILL CALL BACK.
--- NOTE | 2016-12-03 19:05 | NUR ---
ENDORSED TO THE CERTIFIED PROFESSIONAL CONTROLLER NURSE AT BEDSIDE FOR CONTINUITY OF CARE. PT WAITING FOR BED AT [facility]. TRANSPORT ON HOLD. PT STABLE IN CONDITION.
--- NOTE | 2016-12-03 19:30 | NUR ---
RECEIVED REPORT FROM CLAIR EWING AT BEDSIDE. PT IS ALERT AWAKE ORIENTED X4. INITIAL ASSESSMENT DONE. NO S/S OF RESPIRATORY DISTRESS OR SOB NOTED. NO C/O PAIN OR ANY DISCOMFORT AT THIS TIME. PT IS READY TO BE DISCHARGED AND WILL BE GOING TO [facility]. JUST WAITING FOR BED AVAILABILITY. DISCHARGED INSTRUCTION REVIEWED TO PT AND FAMILY AT BEDSIDE AND VERBALIZED UNDERSTANDING. CALL LIGHT WITHIN REACH. WILL CONTINUE TO MONITOR.
--- NOTE | 2016-12-03 19:35 | NUR ---
RECEIVED A CALL FROM [facility]. SPOKE TO JANIE MILLER AND SAID THAT PT WILL BE GOING TO ROOM 123B AND GAVE REPORT TO HER. WILL CONTINUE TO MONITOR.
--- NOTE | 2016-12-03 19:50 | NUR ---
CALLED [facility] [phone] AND SPOKE WITH TERRA AND STATED HE WILL CALL BACK TO GIVE THE ETA WITHIN 2 HRS FROM NOW. EKATERINA MADE AWARE.
[2016-12-03] MEDS: QUEtiapine FUMARATE 100 MG TAB PO SCH (20:26)
[2016-12-03] MEDS: PARoxetine 20 MG TAB PO SCH (20:26)
[2016-12-03] MEDS ORDERED: INSULIN DETEMIR 100 UNITS/ML 10 ML VIAL SUBQ SCH (21:00)
--- NOTE | 2016-12-03 21:30 | NUR ---
[facility] CALLED AND INFORMED US THAT ETA WILL BE 2200. WILL CONTINUE TO MONITOR.
--- NOTE | 2016-12-03 22:10 | NUR ---
[facility] CAME TO PICK-UP PT @ 2200. DISCHARGE INSTRUCTION REVIEWED TO PT AND VERBALIZED UNDERSTANDING. THEY LEFT THE UNIT AROUND 2210. PT IS STABLE DURING THE DISCHARGE.
[2016-12-04] MEDS ORDERED: NICOTINE TRANSD SYS 21 MG/24 HR PATCH TD SCH (09:00)
== END 2016-12-03 22:10 | DRG 133 ==
LOC: MED 21:55 → MTU 11-29 02:10
PROVIDERS: ADMIT Student in an Organized Health Care Education/Training Program; ATTEND Student in an Organized Health Care Education/Training Program
PROC: 5A09357 Assistance with Respiratory Ventilation, Less than 24 Consecutive Hours, Continuous Positive Airway Pressure (ICD-10-PCS; principal; 2016-11-28)
DX: J96.21 Acute and chronic respiratory failure with hypoxia (principal); N17.0 Acute kidney failure with tubular necrosis; J18.9 Pneumonia, unspecified organism; E11.42 Type 2 diabetes mellitus with diabetic polyneuropathy; E11.51 Type 2 diabetes mellitus with diabetic peripheral angiopathy without gangrene; D68.69 Other thrombophilia; I82.432 Acute embolism and thrombosis of left popliteal vein; J44.0 Chronic obstructive pulmonary disease with (acute) lower respiratory infection; I50.9 Heart failure, unspecified; Z68.41 Body mass index [BMI] 40.0-44.9, adult; S22.39XA Fracture of one rib, unspecified side, initial encounter for closed fracture; J44.1 Chronic obstructive pulmonary disease with (acute) exacerbation; K21.9 Gastro-esophageal reflux disease without esophagitis; E66.01 Morbid (severe) obesity due to excess calories; G40.909 Epilepsy, unspecified, not intractable, without status epilepticus; F20.9 Schizophrenia, unspecified; F31.9 Bipolar disorder, unspecified; F19.10 Other psychoactive substance abuse, uncomplicated; N39.0 Urinary tract infection, site not specified; M17.0 Bilateral primary osteoarthritis of knee; N20.0 Calculus of kidney; K80.20 Calculus of gallbladder without cholecystitis without obstruction; E11.65 Type 2 diabetes mellitus with hyperglycemia; F17.200 Nicotine dependence, unspecified, uncomplicated; W19.XXXA Unspecified fall, initial encounter; Y93.89 Activity, other specified; Y92.89 Other specified places as the place of occurrence of the external cause; Y99.8 Other external cause status; Z88.8 Allergy status to other drugs, medicaments and biological substances; Z79.4 Long term (current) use of insulin; Z82.49 Family history of ischemic heart disease and other diseases of the circulatory system; Z83.3 Family history of diabetes mellitus

== ENCOUNTER 2017-04-09 15:44 | Emergency (ER) | payer OTHER ==
[~2017-04-09] VITALS: Ht 157.5 cm; Wt 120.2 kg
[~2017-04-09 15:44] MED LIST: ACET-1182 PO; ACET-4275 PO; ASPI81CT27 PO; ATOR20TA40 PO; BLOO1STR10 FS; CARV3.122 PO; D50SYR IVP; GABA-638 PO; INSU-1343 SUBQ; IPRA3AMP IH; LAS20I IVP; LEVEMIR SUBQ; LEVO750T2 IV; LISI10TA11 PO; METF850T PO; ONDA2SOL45 IVP; PAX20 PO; PUL.5N INH; QUET100T44 PO; SACC250C1 PO
[2017-04-09 16:09] VITALS: BP 145/86
--- NOTE | 2017-04-09 19:18 | NUR ---
PATIENT BIB WHEELCHAIR TO ER BED 3.
--- NOTE | 2017-04-09 19:20 | NUR ---
PATIENT BEING EVALUATED BY DR. ENCARNACION.
--- NOTE | 2017-04-09 19:27 | NUR ---
61Y/F PATIENT PRESENTS TO ED WITH C/O GENERALIZED BODY PAIN X 8 HRS. PT STATES PASS OUT AND FELL THIE MORNING, HEAD HITTING . DENIES N/V/D. HX. DM, ZEISURE, HTN; SKIN IS PINK/WARM/DRY; AAOX4 AMBULATE WIT W/C ASSIST; LUNGS CLEAR BL; HR EVEN AND REGULAR; PT DENIES ANY FEVER, CP, SOB, OR COUGH AT THIS TIME; PATIENT STATES PAIN OF 10/10 AT THIS TIME; VSS; PATIENT POSITIONED FOR COMFORT; HOB ELEVATED; BEDRAILS UP X2; BED DOWN. ER MD MADE AWARE OF PT STATUS.
[2017-04-09] MEDS ORDERED: oxyCODONE/APAP 5/325 MG 1 TAB TAB PO ONE (20:10)
[2017-04-09 20:28] LABS: BASOPHILS # (AUTO) 0.2 K/uL (0.00-0.22); EOSINOPHILS # (AUTO) 0.2 K/uL (0-0.4); HEMATOCRIT 42.8 % (36-48); HEMOGLOBIN 13.8 g/dL (12.0-16.0); LYMPHOCYTES # (AUTO) 2.5 K/uL (2.5-16.5); LYMPHOCYTES % (AUTO) 31.7 % (20.5-51.1); MEAN CORPUSCULAR HEMOGLOBIN 29 pg (27-31); MEAN CORPUSCULAR HGB CONC 32 g/dL (33-37); MEAN CORPUSCULAR VOLUME 90 fL (80-94); MONOCYTES # (AUTO) 0.5 K/uL (0.8-1.0); MONOCYTES % (AUTO) 6.7 % (1.7-9.3); NEUTROPHILS # (AUTO) 4.4 K/uL (1.8-7.7); PLATELET COUNT (AUTO) 109 K/uL (140-450); RED BLOOD CELL COUNT(AUTO) 4.77 MIL/uL (4.20-5.40); RED CELL DISTRIBUTION WIDTH 13.3 % (11.6-13.7); WHITE BLOOD COUNT (AUTO) 7.8 K/uL (4.8-10.8)
[2017-04-09 20:37] LABS: ANION GAP 10.6 (8-16); CALCIUM 8.9 mg/dL (8.5-10.1); CARBON DIOXIDE 28.3 mmol/L (21-32); CREATININE 0.7 mg/dL (0.6-1.3); POTASSIUM 3.9 mmol/L (3.5-5.1)
[2017-04-09 20:43] LABS: ALBUMIN 3.3 g/dL (3.4-5.0); TOTAL BILIRUBIN 0.4 mg/dL (0.0-1.0); TOTAL PROTEIN, SERUM 7.5 g/dL (6.4-8.2)
[2017-04-09 21:24] VITALS: BP 165/94
--- NOTE | 2017-04-09 21:25 | NUR ---
Patient discharged with v/s stable. Written and verbal after care instructions given and explained. Patient alert, oriented and verbalized understanding of instructions. Ambulatory with steady gait. All questions addressed prior to discharge. ID band removed. Patient advised to follow up with PMD. Rx of NORCO 5/325 MG given. Patient educated on indication of medication including possible reaction and side effects. Opportunity to ask questions provided and answered.
== END 2017-04-09 21:25 | disposition home or self-care (01) ==
LOC: MED 15:44
DX: S09.90XA Unspecified injury of head, initial encounter (principal); J44.9 Chronic obstructive pulmonary disease, unspecified; I50.9 Heart failure, unspecified; E11.9 Type 2 diabetes mellitus without complications; I10 Essential (primary) hypertension; F31.9 Bipolar disorder, unspecified; M19.90 Unspecified osteoarthritis, unspecified site; Z88.8 Allergy status to other drugs, medicaments and biological substances; W18.39XA Other fall on same level, initial encounter; Y93.89 Activity, other specified; Y92.89 Other specified places as the place of occurrence of the external cause; Y99.8 Other external cause status
CPT/HCPCS: 36415; 70450; 80053; 82550; 82948; 83880; 84484; 85025; 93005; 99285

== ENCOUNTER 2020-01-24 17:45 | Inpatient (IN) | payer MEDICAID, OTHER ==
[~2020-01-24] VITALS: Ht 144.8 cm; Wt 70.8 kg
[~2020-01-24 17:45] MED LIST changes: -ACET-4275 PO; -ASPI81CT27 PO; +ASPI81CT95 PO; -BLOO1STR10 FS; +BLOO1STR56 FS; -D50SYR IVP; -INSU-1343 SUBQ; -IPRA3AMP IH; -LAS20I IVP; -LEVO750T2 IV; -ONDA2SOL45 IVP; -PUL.5N INH; +ROC2I IV
--- NOTE | 2020-01-24 17:45 | NUR ---
Patient BIBA ALS, transferred ot bed 7. RN evaluating patient at bedside.
[2020-01-24 17:53] VITALS: BP 115/45
--- NOTE | 2020-01-24 18:04 | NUR ---
64 Y/O FEMALE BIB [facility] C/O NEW ONSET SOB AND CHEST PAIN. PT STATES SHE BEGAN FEELING SOB EARLIER TODAY AND USED HER ALBUTEROL INHALER ONCE WITH NO RELIEF. RESP EVEN AND UNLABORED. COARSE WHEEZES HEARD IN BILAT LOBES THROUGHOUT. BOWEL SOUNDS NORMOACTIVE IN ALL QUADRANTS. PT C/O CHEST PAIN 9/10 LOCATED ON RIGHT SIDE RADIATING TO RIGHT ARM AND BACK, SHARP, OCCURRING DURING BREATHING. CAP REFILL <3. NO EDEMA NOTED. ABD HERNIA NOTED. AAOX4. ROM+ PMH: CHF, COPD, DM, HTN
[2020-01-24 18:32] LABS: APPEARANCE,URINE CLOUDY (CLEAR); BILIRUBIN,URINE NEGATIVE (NEGATIVE); BLOOD, URINE 3+ (NEGATIVE); COLOR,URINE YELLOW (YELLOW); LEUKOCYTE ESTERASE ,URINE 3+ (NEGATIVE); NITRITE, URINE POSITIVE (NEGATIVE); UGLUCOSE NEGATIVE (NEGATIVE)
[2020-01-24] MEDS ORDERED: KETOROLAC 30 MG/ML VIAL IVP ONE (18:35)
[2020-01-24] MEDS ORDERED: ALBUTEROL SULFATE/IPRATROPIU 3 ML SOL IH ONE (18:35)
[2020-01-24] MEDS ORDERED: LEVOFLOXACIN 500 MG/D5W PREMIX 100 ML IV ONE (18:45)
[2020-01-24 19:01] LABS: RBC,URINE >100 /HPF (0-5)
[2020-01-24 19:02] LABS: WBC,URINE 80-100 /HPF (0-5)
--- NOTE | 2020-01-24 19:10 | NUR ---
REPORT RECEIVED FROM LIBORIO EWING.
--- NOTE | 2020-01-24 19:15 | NUR ---
ATTEMPTED IV PLACEMENT X3 UNSUCCESSFUL. UPDATED. TORADOL IM GIVEN BY KAYLIN CAPONE.
[2020-01-24] MEDS ORDERED: FUROSEMIDE 20 MG/2 ML VIAL IVP ONE ×2 (19:35→20:10)
--- NOTE | 2020-01-24 19:40 | NUR ---
DR STEINER PLACED 22G IV UPPER RIGHT SHOULDER. STARTED IV LEVAQUIN. WILL CONTINUE TO MONITOR.
[2020-01-24 19:43] LABS: BASOPHILS % (AUTO) 0.5 % (0.0-2.0); EOSINOPHILS # (AUTO) 0.1 K/uL (0-0.4); HEMATOCRIT 27.3 % (36-48); HEMOGLOBIN 8.4 g/dL (12.0-16.0); LYMPHOCYTES # (AUTO) 1.5 K/uL (2.5-16.5); LYMPHOCYTES % (AUTO) 16.8 % (20.5-51.1); MEAN CORPUSCULAR HEMOGLOBIN 23 pg (27-31); MEAN CORPUSCULAR HGB CONC 31 g/dL (33-37); MEAN CORPUSCULAR VOLUME 73.9 fL (80-94); MONOCYTES # (AUTO) 0.7 K/uL (0.8-1.0); MONOCYTES % (AUTO) 7.4 % (1.7-9.3); NEUTROPHILS # (AUTO) 6.7 K/uL (1.8-7.7); NEUTROPHILS % (AUTO) 74.3 % (42.2-75.2); PLATELET COUNT (AUTO) 325 K/uL (140-450); RED CELL DISTRIBUTION WIDTH 17.7 % (11.6-13.7)
[2020-01-24] MEDS ORDERED: MORPHINE SULFATE 4 MG/ML SYR IVP ONE (19:45)
[2020-01-24] MEDS ORDERED: ONDANSETRON 4 MG/2 ML VIAL IVP ONE (19:45)
[2020-01-24 19:53] LABS: PROTHROMBIN TIME 10.4 secs (10.8-13.4)
[2020-01-24 19:55] LABS: ALBUMIN 2.9 g/dL (3.4-5.0); ANION GAP 12.1 (8-16); CARBON DIOXIDE 29.9 mmol/L (21-32); CREATININE 0.8 mg/dL (0.6-1.3); TOTAL BILIRUBIN 0.2 mg/dL (0.0-1.0)
[2020-01-24] MEDS ORDERED: NACL 0.9% 1,000 ML IV ONE (20:10)
[2020-01-24] MEDS ORDERED: NACL 0.9% 1,000 ML IV SCH (20:18)
[2020-01-24] MEDS ORDERED: ACETAMINOPHEN 325 MG TAB PO PRN (20:20)
[2020-01-24] MEDS ORDERED: ONDANSETRON 4 MG/2 ML VIAL IVP PRN (20:20)
[2020-01-24] MEDS ORDERED: HYDROcodone/APAP 7.5/325 MG 1 TAB PO PRN (20:20)
[2020-01-24] MEDS ORDERED: ALBUTEROL HFA MDI 90 MCG/ACTUATION 8 GM INH PRN (20:35)
[2020-01-24] MEDS ORDERED: HYDR-5092 PO (20:35)
--- NOTE | 2020-01-24 20:35 | NUR ---
PT IS POOR HISTORIAN -- LIMITED INFO AVAILABLE REGARDING HOME MEDICATIONS.
[2020-01-24 21:17] LABS: FREE T4 (FREE THYROXINE) 1.03 ng/dL (0.76-1.46); MAGNESIUM 1.4 mg/dL (1.8-2.4); PHOSPHORUS 2.6 mg/dL (2.5-4.9); THYROID STIMULATING HORMONE 0.74 uIU/mL (0.34-3.74)
[2020-01-24 21:30] VITALS: BP 133/60
--- NOTE | 2020-01-24 21:30 | NUR ---
Patient will be admitted to care of [facility]. Admited to TELEMETRY. Will go to room 107B. Belongings list completed. Report to RUBÉN EWING.
--- NOTE | 2020-01-24 21:30 | NUR ---
RECEIVED PATIENT FROM ED VIA PERRY. RECEIVED BESIDE REPORT FROM KAYLIN ENGLAND. PT AWAKE ON 2L O2 VIA NASAL CANNULA FOR SOB. PT IV SITE ASSESSED AND PATENT, INITIAL VITAL SIGNS: T: 97.6 P: 91 R: 19, SPO2: 99% B/P: 133/60. PT COMPLAINED OF 5/10 (CHRONIC PAIN IN LOWERBACK) PT MEDICATED IN ED FOR PAIN. MRSA SWAB OBTAINED. FALL PREVENTION IMPLEMENTED, SEIZURE PRECAUTIONS APPLIED, ALLERGY BAND APPLIED. PT ORIENTED TO THE ROOM AND CALL LIGHT. BED IN LOW POSITION CALL LIGHT WITHIN REACH. WILL CONTINUE TO MONITOR
[2020-01-24] MEDS ORDERED: MAG SULF 2000 MG/WATER PREMIX 100 ML IV ONE (23:30)
--- NOTE | 2020-01-24 23:42 | NUR ---
PT REQUESTED ASSISTANCE TO USE THE RESTROOM. PROVIDED PATIENT ASSISTANCE. PT EXPERIENCED SOB ON AMBULATION REAPPLIED O2 WHEN PATIENT WAS PLACED BACK IN BED PATIENT STATES THE SOB WAS RELIEVED. WILL CONTINUE TO MONITOR
[2020-01-25] VITALS: BP 119/77
[2020-01-25] MEDS: DOCUSATE SODIUM 100 MG GELCAP PO SCH ×4 (00:10→20:59)
--- NOTE | 2020-01-25 00:12 | NUR ---
ADMINISTERED PATIENTS MEDICATIONS, HEPARIN AND COLACE PER MD ORDER. PT TOLERATED WELL. NO SIGNS OF DISTRESS NOTED. SAFETY MEASURES IN PLACE CALL LIGHT WITHIN REACH. WILL CONTINUE TO MONITOR
--- NOTE | 2020-01-25 00:17 | NUR ---
PT STARTED ON MAGNESIUM SULFATE AND STERILE WATER PREMIX PER MD ORDER. PT TOLERATED WELL. NO SIGNS OF DISTRESS NOTED. WILL CONTINUE TO MONITOR
[2020-01-25] MEDS ORDERED: FLUT1POW3 IH (01:55)
--- NOTE | 2020-01-25 02:02 | NUR ---
ROUNDING. PT RESTING IN BED NO SIGNS OF DISTRESS NOTED. NO MAGNESIUM INFUSING WITH EASE. WILL CONTINUE TO MONITOR
[2020-01-25] MEDS ORDERED: [UNRECOGNIZED DRUG - CODE] PO (02:04)
[2020-01-25] MEDS ORDERED: DEXT 5% /NACL 0.9% 1,000 ML IV SCH (02:10)
[2020-01-25] MEDS ORDERED: MENT1OIN22 TP (02:12)
[2020-01-25] MEDS ORDERED: ATOR20TA PO (02:43)
[2020-01-25] MEDS ORDERED: VARE1TAB PO (02:43)
[2020-01-25] MEDS ORDERED: TRAZ-344 PO (02:43)
[2020-01-25] MEDS ORDERED: OLAN2.5T1 PO (02:43)
[2020-01-25] MEDS ORDERED: POTA10TE30 PO (02:43)
[2020-01-25] MEDS ORDERED: GABA-638 PO (02:43)
[2020-01-25] MEDS ORDERED: LOPE-289 PO (02:43)
[2020-01-25] MEDS ORDERED: RISP0.5T3 PO (02:43)
[2020-01-25] MEDS ORDERED: APIX5TAB4 PO (02:43)
[2020-01-25] MEDS ORDERED: PRO5 PO (02:43)
[2020-01-25] MEDS ORDERED: FERR325E14 PO (02:43)
[2020-01-25] MEDS ORDERED: ALBU6.7H IH (02:43)
[2020-01-25] MEDS ORDERED: PRON INH (02:43)
[2020-01-25] MEDS ORDERED: DULO30EC PO (02:43)
[2020-01-25] MEDS ORDERED: FURO-570 PO (02:43)
[2020-01-25] MEDS ORDERED: DOCU1TAB73 PO (02:43)
[2020-01-25] MEDS ORDERED: LANS15EC28 PO (02:43)
[2020-01-25] MEDS ORDERED: METF850T PO (02:43)
[2020-01-25] MEDS ORDERED: FLUTICASONE IH PRN (02:45)
[2020-01-25] MEDS ORDERED: VILANTEROL IH PRN (02:45)
[2020-01-25] MEDS ORDERED: LOPERAMIDE 2 MG CAP PO SCH (02:45)
[2020-01-25] MEDS ORDERED: VARE1TAB27 PO (02:52)
[2020-01-25 04:00] VITALS: BP 110/64
[2020-01-25] MEDS ORDERED: PIPERACILLIN/TAZOBACTAM 3.375 GM VIAL IV ONE (04:14)
[2020-01-25] MEDS: PIPERACILLIN/TAZOBACTAM 3.375 GM in DEXTROSE 5% 50 ML IV SCH ×3 (04:44→20:48)
--- NOTE | 2020-01-25 04:44 | NUR ---
PATIENT IS A HARD STICK UNABLE TO OBTAIN A SECOND IV SITE TO RUN ZOSYN. PAUSED MAGNESIUM FOR 30MINUTES TO ALLOW THE ZOSYN TO COMPLETE ITS INFUSION. WILL RESUME THE MAGNESIUM AFTER ANTIBIOTIC COMPLETION. PT TOLERATING MEDICATION WEL. NO SIGNS OF DISTRESS NOTED. WILL CONTINUE TO MONITOR
--- NOTE | 2020-01-25 05:15 | NUR ---
LEFT A MESSAGE TO DIETARY: PT IS REQUESTING FOR OATMEAL; PANCAKES; EGGS ; MACEDONIAN MUFFINS; SOUR CREAM OR CREAM CHEESE, COFFEE, ORANGE JUICE, GONZALEZ OR SAUSAGE. PLS CHECKS LATEST DIET ORDER BEFORE CATERING TO HER REQUESTS
[2020-01-25] MEDS ORDERED: LOPERAMIDE 2 MG CAP PO PRN (05:38)
--- NOTE | 2020-01-25 05:49 | NUR ---
ASKED DR. THOMAS ON PT'S DIET, PER ORDERED DIET NPO EXCEPT MEDS. SPECIFICALLY TO LET ME PUT THE ORDER FOR HIM DUE TO CIRCUMSTANCES RIGHT NOW.CARRIED OUT ORDERS
[2020-01-25] MEDS: HYDROcodone/APAP 10/325 MG 1 TAB TAB PO SCH ×3 (05:51→20:43)
--- NOTE | 2020-01-25 06:00 | NUR ---
CONTINUED THE MAG SULFATE (2ND BAG) AT 25 ML/ HR, CHECKED THE SITE NO INFLAMMATION.
[2020-01-25 06:52] LABS: BASOPHILS % (AUTO) 0.3 % (0.0-2.0); EOSINOPHILS # (AUTO) 0.1 K/uL (0-0.4); EOSINOPHILS % (AUTO) 1.3 % (0.0-4.0); HEMATOCRIT 25.9 % (36-48); HEMOGLOBIN 7.8 g/dL (12.0-16.0); LYMPHOCYTES # (AUTO) 1.2 K/uL (2.5-16.5); MEAN CORPUSCULAR HEMOGLOBIN 22 pg (27-31); MEAN CORPUSCULAR HGB CONC 30 g/dL (33-37); MEAN CORPUSCULAR VOLUME 74.8 fL (80-94); MONOCYTES # (AUTO) 0.8 K/uL (0.8-1.0); NEUTROPHILS # (AUTO) 5.7 K/uL (1.8-7.7); NEUTROPHILS % (AUTO) 73.4 % (42.2-75.2); PLATELET COUNT (AUTO) 274 K/uL (140-450); RED BLOOD CELL COUNT(AUTO) 3.47 MIL/uL (4.20-5.40); RED CELL DISTRIBUTION WIDTH 17.8 % (11.6-13.7); WHITE BLOOD COUNT (AUTO) 7.7 K/uL (4.8-10.8)
--- NOTE | 2020-01-25 07:05 | NUR ---
RECEIVED REPORT FROM NIGHT NURSE FOR CONTINUITY OF CARE, PT IS AAOX4, PT IS STABLE ON 2L NC, PT HAS R SHOULDER 22G INFUSING D5 NS AT 75 ML/H, INTRODUCE SELF, UPDATED WHITEBOARD, SAFETY MEASURES IN PLACE, ALL NEEDS MET, CALL LIGHT WITHIN REACH.
--- NOTE | 2020-01-25 07:08 | NUR ---
PT AWAKE, ALERT ORIENTED X 4, PT UP AD MAKAYLA, ENDORSED TO NEXT SHIFT FOR CONTINUITY OF CARE. NO COMPLAINTS AT THIS TIME.
[2020-01-25 07:14] LABS: ANION GAP 10.9 (8-16); CREATININE 0.9 mg/dL (0.6-1.3); POTASSIUM 3.9 mmol/L (3.5-5.1)
[2020-01-25 07:18] LABS: CHOL/HDL RATIO 1.9 (1-4.5); MAGNESIUM 2.2 mg/dL (1.8-2.4); PHOSPHORUS 3.8 mg/dL (2.5-4.9)
[2020-01-25 08:00] VITALS: BP 110/62
[2020-01-25] MEDS: ALBUTEROL SULFATE/IPRATROPIU 3 ML SOL IH PRN (08:08)
[2020-01-25] MEDS: metFORMIN 500 MG TAB PO SCH ×2 (08:20→17:26)
[2020-01-25] MEDS: CALCIUM CARB/VIT-D 500 MG/200 IU 1 TAB PO SCH (08:21)
[2020-01-25] MEDS: GABAPENTIN 300 MG CAP PO SCH ×3 (08:21→17:27)
[2020-01-25] MEDS: FUROSEMIDE 40 MG TAB PO SCH (08:21)
--- NOTE | 2020-01-25 08:21 | NUR ---
ADMINISTERED ORDERED MEDICATION, PT EDUCATION GIVEN, PT VERBALIZED UNDERSTANDING, PT REFUSED ALL STOOL SOFTENER, PT DENIED BEING CONSTIPATED, PT TOLERATED MEDICATION WELL, PT IS STABLE, CALL LIGHT WITHIN REACH.
[2020-01-25] MEDS: DULoxetine 30 MG CAPDR PO SCH (08:22)
[2020-01-25] MEDS: LANSOPRAZOLE 30 MG CAPDR PO SCH (08:22)
[2020-01-25] MEDS: FERROUS SULFATE 325 MG TABEC PO SCH ×2 (08:22→20:43)
[2020-01-25] MEDS: POTASSIUM CHLORIDE 10 MEQ TABER PO SCH (08:23)
[2020-01-25] MEDS: risperiDONE 1 MG TAB PO SCH (08:23)
[2020-01-25] MEDS: APIXABAN 2.5 MG TAB PO SCH ×2 (08:24→20:45)
[2020-01-25] MEDS: DOCUSATE SOD/SENNA 50/8.6 MG 1 TAB PO SCH (08:25)
--- NOTE | 2020-01-25 08:47 | NUR ---
PATIENT HAS BEEN SCREENED AND CATEGORIZED MODERATE NUTRITION RISK. PATIENT WILL BE SEEN WITHIN 3-5 DAYS OF ADMISSION. 01/27/20 01/29/[address]
[2020-01-25] MEDS ORDERED: CALCIUM CARBONATE PO SCH (09:00)
[2020-01-25] MEDS ORDERED: NON-FORMULARY ITEM (Lansoprazole* (Prevacid 24Hr*) 30 MG) PO SCH (09:00)
[2020-01-25] MEDS ORDERED: VITAMIN D3 PO SCH (09:00)
[2020-01-25] MEDS ORDERED: [UNRECOGNIZED DRUG - OTHER] PO SCH (09:00)
[2020-01-25] MEDS ORDERED: NON-FORMULARY ITEM (Apixaban (Eliquis) 5 MG) PO SCH (09:00)
[2020-01-25] MEDS ORDERED: NON-FORMULARY ITEM (Varenicline Tartrate (Chantix) 1 TAB) PO SCH (09:00)
[2020-01-25] MEDS ORDERED: SODIUM FERRIC GLUCONATE 125 MG in NACL 0.9% 100 ML IV SCH (10:00)
[2020-01-25] MEDS ORDERED: DEXTROSE 50% 50 ML SYR IVP PRN (11:05)
--- NOTE | 2020-01-25 11:25 | NUR ---
PT SIGNED ADMISSION PAPERWORK, NOTIFIED ADMISSION, ST AT BEDSIDE, PT STABLE, CALL LIGHT WITHIN REACH.
--- NOTE | 2020-01-25 11:45 | NUR ---
ST NOTES S: SWALLOW EVAL WAS RECEIVED AND VERIFIED. Pt WAS ADMITTED WITH CHF EXACERBATION, UTI. Pt HAS HX OF BIPOLAR, COPD, ANXIETY, ASTHMA, CHF, DIABETES, SEIZURES, OBESITY. RNYOLANDA, CLEARED Pt FOR SWALLOW EVAL. Pt WAS SEEN AT BEDSIDE. HOB NEAR 90 DEGREES FOR ASPIRATION PRECAUTIONS. Pt WAS ALERT, RESPONSIVE, VERBAL, AND COOPERATIVE. Pt CURRENTLY NPO FOR ST EVAL. O: ST FOR SWALLOW EVAL COMPLETED. A: Pt WAS ABLE TO DEMONSTRATE ADEQUATE ORAL MOTOR COORDINATION AND STRENGTH. Pt HAS OWN FULL DENTITION MINUS TWO TOP TEETH. Pt WAS ABLE TO TOLERATE ICE CHIPS, PUREE, MS, REG FOOD, AND THIN LIQUIDS BY CUP AND STRAW, SINGLE AND CONTINUOUS SIPS, W/O DIFFICULTY OR OVERT S/S OF ASPIRATION OR PENETRATION NOTED. AP TRANSFER AND SWALLOW RESPONSES WERE TIMELY WITH FULL LARYNGEAL ELEVATION AND EXCURSION. Pt WAS ABLE TO FEED SELF, BUT BENEFITED FROM CUES TO REDUCE BOLUS SIZE ON SPOON D/T SLIGHT IMPULSIVITY. P: REC REGULAR DIET WITH THIN LIQUIDS, VIA CUP OR STRAW OKAY. ASPIRATION PRECAUTIONS, ORAL CARE, AND INTERMITTENT SUPERVISION NEEDED. ADDITIONAL SKILLED ST NOT INDICATED AT THIS TIME. JAMES BARRAGAN MS, CCC-LUMP RECEIVER
[2020-01-25] MEDS: NACL 0.9% 1,000 ML IV SCH (11:58)
[2020-01-25] MEDS: BLOOD GLUCOSE MONITORING 1 DEV DEV FS SCH ×3 (11:59→21:05)
[2020-01-25 12:00] VITALS: BP 110/45
--- NOTE | 2020-01-25 13:10 | NUR ---
White Spooler Note: Basic Screen: Yes High Risk DC Screen [place]: CAROL MCDOWELL Home Relationship: SISTER Pre-Admission Living Arrangements: Other Other: [facility] Current Home Health Name/Tel: N/A Current DME/02 Name/Tel: [facility] Current Hospice Name/Tel: N/A Current Dialysis Name/Tel: N/A Healthcare Decision Maker: Next of Kin Advance Directive No Physician Orders for Life Sustaining Treatment Form No Discipline: Case Mgt/Social Svcs Tentative Discharge Plan/Destination: Other Other: [facility] Referred to [place] Hand: No Tentative Discharge Plan Summary: Patient is a 64-year-old female admitted for CHF. Patient has PMHX of bipolar disorder, COPD, anxiety, diabetes, and asthma. Patient was admitted from [facility]. SW contacted [facility] and spoke to Kari. Per Kari patient is independent with ADLs and requires very minimal assistance. Kari stated that patient is alert/oriented at baseline and patient's healthcare decision maker is sister Carol Mcdowell. Tentative discharge plan is for patient to return to [facility]. No further needs identified. Signature: PONCHO Shea Date: Jan 25, 2020 Time: 13:09
--- NOTE | 2020-01-25 13:58 | NUR ---
ADMINISTERED ORDERED MEDICATION, PT EDUCATION GIVEN, PT VERBALIZED UNDERSTANDING, PT IS STABLE, PT GETTING US OF LEG, CALL LIGHT WITHIN REACH.
[2020-01-25] MEDS: ALBUTEROL SULFATE/IPRATROPIU 3 ML SOL IH SCH ×3 (14:45→22:54)
--- NOTE | 2020-01-25 15:00 | NUR ---
PT IS SITTING IN BED WATCHING TV, PT IS STABLE, CALL LIGHT WITHIN REACH.
[2020-01-25 16:00] VITALS: BP 97/51
--- NOTE | 2020-01-25 17:00 | NUR ---
PT IS SITTING IN HER BED, PT IS STABLE, CALL LIGHT WITHIN REACH.
[2020-01-25 18:39] LABS: BASOPHILS % (AUTO) 0.4 % (0.0-2.0); EOSINOPHILS # (AUTO) 0.1 K/uL (0-0.4); EOSINOPHILS % (AUTO) 1.8 % (0.0-4.0); HEMATOCRIT 26.1 % (36-48); HEMOGLOBIN 7.8 g/dL (12.0-16.0); LYMPHOCYTES # (AUTO) 1.7 K/uL (2.5-16.5); LYMPHOCYTES % (AUTO) 20.7 % (20.5-51.1); MEAN CORPUSCULAR HEMOGLOBIN 22 pg (27-31); MEAN CORPUSCULAR HGB CONC 30 g/dL (33-37); MEAN CORPUSCULAR VOLUME 74.7 fL (80-94); MONOCYTES # (AUTO) 0.7 K/uL (0.8-1.0); MONOCYTES % (AUTO) 9.1 % (1.7-9.3); NEUTROPHILS # (AUTO) 5.4 K/uL (1.8-7.7); PLATELET COUNT (AUTO) 285 K/uL (140-450); RED BLOOD CELL COUNT(AUTO) 3.49 MIL/uL (4.20-5.40); RED CELL DISTRIBUTION WIDTH 17.7 % (11.6-13.7)
[2020-01-25] MEDS: BUDESONIDE 0.5 MG/2 ML NEBU INH SCH (19:23)
--- NOTE | 2020-01-25 19:25 | NUR ---
RECEIVED REPORT FROM DAY SHIFT NURSE. PATIENT IN BED, ON SEMIFOWLERS POSITION. WITH O2 2LPM VIA NASAL CANNULA. IVF PATENT AND INFUSING WELL. SKIN IS DRY AND INTACT. NO SIGNS OF DISTRESS NOTED AT THIS TIME. SAFETY MEASURES IN PLACE. BED IN LOW POSITION, SIDE RAILS RAISED, CALL LIGHT WITHIN REACH. KEPT COMFORTABLE, WILL CONTINUE TO MONITOR.
--- NOTE | 2020-01-25 19:30 | NUR ---
GAVE REPORT TO NIGHT NURSE FOR CONTINUITY OF CARE, PT IS STABLE.
[2020-01-25 20:00] VITALS: BP 92/44
[2020-01-25] MEDS: ATORVASTATIN 20 MG TAB PO SCH (20:42)
[2020-01-25] MEDS: methylPREDNISolone SS 40 MG/ML VIAL IVP SCH (20:42)
[2020-01-25] MEDS: traZODone 50 MG TAB PO SCH (20:47)
[2020-01-25] MEDS: OLANZapine 5 MG TAB PO SCH (20:47)
--- NOTE | 2020-01-25 20:50 | NUR ---
PATIENT RESTING IN BED. SCHEDULED MEDICATIONS GIVEN ORDERED. PATIENT REFUSED COLACE. TEACHING REGARDING IMPORTANCE OF COLACE. PATIENT VERBALIZED UNDERSTANDING BUT STILL REFUSED. PATIENT ON O2 2LPM VIA NC. NO COMPLAINS MADE AT THIS TIME. SAFETY MEASURES IN PLACE. KEPT COMFORTABLE. WILL CONTINUE TO MONITOR.
--- NOTE | 2020-01-25 22:54 | NUR ---
NO HHN TX GIVEN. PT IS ASLEEP. WILL ASSESSED AGAIN AT 3 OCLOCK TX
[2020-01-26] VITALS: BP 117/65
--- NOTE | 2020-01-26 00:21 | NUR ---
ROUNDS MADE. PATIENT IN BED SLEEPING. HOB ELEVATED. O2 2LPM VIA NC IN PLACE. RESPIRATIONS EVEN AND UNLABORED. SAFETY MEASURES IN PLACE. BED IN LOW POSITION, SIDE RAILS RAISED, CALL LIGHT WITHIN REACH. NO SIGNS AND SYMPTOMS OF DISTRESS NOTED. WILL CONTINUE TO MONITOR.
[2020-01-26] MEDS: ALBUTEROL SULFATE/IPRATROPIU 3 ML SOL IH SCH ×6 (02:58→23:00)
--- NOTE | 2020-01-26 02:59 | NUR ---
NO HHN RX GIVEN. PT REFUSED. STILL ON 2LNC. WILL CONT TO MONITOR
--- NOTE | 2020-01-26 03:05 | NUR ---
ASSISTED PATIENT INTO COMMODE TO URINATE AND BACK TO BED AFTERWARDS. SAFETY MEASURES OBSERVED AT ALL TIMES. NO EPISODE OF FALL/INJURY.
[2020-01-26] MEDS: ALBUTEROL SULFATE/IPRATROPIU 3 ML SOL IH PRN (03:24)
[2020-01-26 04:00] VITALS: BP 128/59
[2020-01-26] MEDS: HYDROcodone/APAP 10/325 MG 1 TAB TAB PO SCH ×3 (04:03→20:29)
[2020-01-26] MEDS: PIPERACILLIN/TAZOBACTAM 3.375 GM in DEXTROSE 5% 50 ML IV SCH ×3 (04:03→20:31)
--- NOTE | 2020-01-26 04:13 | NUR ---
ROUNDS MADE. PATIENT AWAKE IN BED WATCHING TV WITH O2 2LPM VIA NASAL CANNULA. SCHEDULED MEDICATIONS GIVEN ORDERED. VITAL SIGNS STABLE. NO SIGNS OF DISTRESS NOTED. SAFETY MEASURES IN PLACE. BED IN LOW POSITION, SIDE RAILS RAISED, CALL LIGHT WITHIN REACH, WILL CONTINUE TO MONITOR.
[2020-01-26 05:18] LABS: HEMATOCRIT 28.5 % (36-48); HEMOGLOBIN 8.5 g/dL (12.0-16.0); MEAN CORPUSCULAR HEMOGLOBIN 22 pg (27-31); MEAN CORPUSCULAR HGB CONC 30 g/dL (33-37); MEAN CORPUSCULAR VOLUME 74.6 fL (80-94); PLATELET COUNT (AUTO) 297 K/uL (140-450); RED BLOOD CELL COUNT(AUTO) 3.82 MIL/uL (4.20-5.40); RED CELL DISTRIBUTION WIDTH 17.8 % (11.6-13.7); WHITE BLOOD COUNT (AUTO) 6.7 K/uL (4.8-10.8)
[2020-01-26 05:41] LABS: ANION GAP 13.5 (8-16); CARBON DIOXIDE 27.2 mmol/L (21-32); CREATININE 1.2 mg/dL (0.6-1.3); MAGNESIUM 1.7 mg/dL (1.8-2.4); PHOSPHORUS 3.7 mg/dL (2.5-4.9); POTASSIUM 4.7 mmol/L (3.5-5.1)
[2020-01-26] MEDS: INSULIN LISPRO SLIDING SCALE 100 UNITS/ML VIAL SUBQ PRN ×3 (06:07→20:37)
[2020-01-26] MEDS: BLOOD GLUCOSE MONITORING 1 DEV DEV FS SCH ×4 (06:10→20:38)
[2020-01-26] MEDS: BUDESONIDE 0.5 MG/2 ML NEBU INH SCH ×2 (06:52→19:28)
[2020-01-26 07:03] LABS: LYMPHOCYTES % (MANUAL) 10 % (20-46); MONOCYTES % (MANUAL) 1 % (5-12)
--- NOTE | 2020-01-26 07:10 | NUR ---
ENDORSED TO DAY SHIFT NURSE. PLAN OF CARE DISCUSSED. PATIENT IN BED WITH O2 2LPM VIA NC. NO COMPLAINTS MADE AT THIS TIME. PATIENT IN STABLE CONDITION.
[2020-01-26 07:12] LABS: FOLIC ACID 4.7 ng/mL (>3.0)
--- NOTE | 2020-01-26 07:31 | NUR ---
RECEIVED PT FROM XRAY TECH RN FOR CONTINUITY OF CARE. PT IS AAOX4, ABLE TO MAKE NEEDS KNOWN. PT SKIN INTACT. PT AMBULATORY WITH ASSISTANCE TO BEDSIDE COMMODE. PT HAS RIGHT SHOULDER 22G INFUSING NS @ 40ML/HR. PT ON NC 2L WITH RHONCHI IN BLL. O2 SAT @ 92%. LBM ON 01/24. DISCUSSED POC WITH PT AND PT VERBALIZED UNDERSTANDING. SAFETY MEASURES IN PLACE. BOARD UPDATED. WILL ROUND FREQUENTLY THROUGHOUT THE SHIFT.
[2020-01-26 08:00] VITALS: BP 146/66
[2020-01-26] MEDS: DOCUSATE SOD/SENNA 50/8.6 MG 1 TAB PO SCH (09:00)
[2020-01-26] MEDS: DOCUSATE SODIUM 100 MG GELCAP PO SCH ×2 (09:00→21:00)
[2020-01-26] MEDS: methylPREDNISolone SS 40 MG/ML VIAL IVP SCH ×2 (09:28→20:29)
[2020-01-26] MEDS: CALCIUM CARB/VIT-D 500 MG/200 IU 1 TAB PO SCH (09:29)
[2020-01-26] MEDS: APIXABAN 2.5 MG TAB PO SCH ×2 (09:29→20:34)
[2020-01-26] MEDS: LANSOPRAZOLE 30 MG CAPDR PO SCH (09:29)
[2020-01-26] MEDS: DULoxetine 30 MG CAPDR PO SCH (09:29)
[2020-01-26] MEDS: MAGNESIUM OXIDE 400 MG TAB PO SCH (09:30)
[2020-01-26] MEDS: metFORMIN 500 MG TAB PO SCH ×2 (09:30→17:37)
[2020-01-26] MEDS: POTASSIUM CHLORIDE 10 MEQ TABER PO SCH (09:30)
[2020-01-26] MEDS: FUROSEMIDE 40 MG TAB PO SCH (09:30)
[2020-01-26] MEDS: GABAPENTIN 300 MG CAP PO SCH ×3 (09:31→17:37)
[2020-01-26] MEDS: FERROUS SULFATE 325 MG TABEC PO SCH ×2 (09:31→20:30)
[2020-01-26] MEDS: risperiDONE 1 MG TAB PO SCH (09:31)
--- NOTE | 2020-01-26 09:38 | NUR ---
ADMINISTERED MORNING MEDS TO PT. PT TOLERATED WELL. ALL NEEDS CURRENTLY MET. WILL CONTINUE TO ROUND ON PT. BED IN LOW POSITION, CALL LIGHT WITHIN REACH.
[2020-01-26] MEDS: NACL 0.9% 1,000 ML IV SCH (11:05)
--- NOTE | 2020-01-26 11:24 | NUR ---
PT RESTING IN BED. ALL NEEDS MET. WILL CONTINUE TO ROUND ON PT. BED IN LOW POSITION, CALL LIGHT WITHIN REACH.
[2020-01-26 12:00] VITALS: BP 138/64
--- NOTE | 2020-01-26 13:40 | NUR ---
PT WATCHING TV. DENIES PAIN OR SOB. WILL CONTINUE TO ROUND ON PT.
--- NOTE | 2020-01-26 15:44 | NUR ---
PT ASLEEP. ALL NEEDS MET. WILL CONTINUE TO ROUND ON PT.
[2020-01-26 16:00] VITALS: BP 130/52
--- NOTE | 2020-01-26 17:38 | NUR ---
PT HAVING DINNER. ALL NEEDS MET. WILL CONTINUE TO ROUND ON PT. BED IN LOW POSITION, CALL LIGHT WITHIN REACH.
--- NOTE | 2020-01-26 19:34 | NUR ---
ENDORSED PT TO DRILL PRESS OPERATOR HELPER FOR CONTINUITY OF CARE. PT IN STABLE CONDITION AT THIS TIME.
--- NOTE | 2020-01-26 19:35 | NUR ---
RECEIVED REPORT FROM DAY SHIFT NURSE. PLAN OF CARE DISCUSSED. PATIENT IN BED WITH HOB ELEVATED. ON O2 2LPM VIA NC. RESPIRATIONS EVEN AND UNLABORED. SKIN IS WARM AND DRY. IVF INFUSING WELL. DENIES PAIN. NO COMPLAINTS MADE AT THIS TIME. PATIENT KEPT COMFORTABLE. SAFETY MEASURES IN PLACE. BED IN LOW POSITION, SIDE RAILS RAISED, CALL LIGHT WITHIN REACH WILL CONTINUE TO MONITOR.
[2020-01-26] MEDS: traZODone 50 MG TAB PO SCH (20:29)
[2020-01-26] MEDS: OLANZapine 5 MG TAB PO SCH (20:29)
[2020-01-26] MEDS: ATORVASTATIN 20 MG TAB PO SCH (20:30)
--- NOTE | 2020-01-26 20:41 | NUR ---
PATIENT RESTING IN BED WITH HOB ELEVATED. ON O2 2LPM VIA NC. SCHEDULED MEDICATIONS GIVEN ORDERED. PATIENT REFUSED COLACE. TEACHINGS GIVEN REGARDING IMPORTANCE OF MEDICATION. STILL REFUSED. BS 199. COVERAGE GIVEN ORDERED. PATIENT DENIES ANY PAIN OR DISCOMFORT AT THIS TIME. SAFETY MEASURES IN PLACE. BED IN LOW POSITION, SIDE RAILS RAISED, CALL LIGHT WITHIN REACH. WILL CONTINUE TO MONITOR.
--- NOTE | 2020-01-26 23:23 | NUR ---
PATIENT IN BED SLEEPING. HOB ELEVATED. ON O2 2LPM VIA NC. RESPIRATIONS EVEN AND UNLABORED. NO S/SX OF DISTRESS NOTED. IVF INFUSING WELL. SAFETY MEASURES IN PLACE. BED IN LOW POSITION, SIDE RAILS UP, CALL LIGHT WITHIN REACH. KEPT COMFORTABLE. WILL CONTINUE TO MONITOR.
[2020-01-27] VITALS: BP 107/51
--- NOTE | 2020-01-27 01:57 | NUR ---
ASSISTED PATIENT INTO COMMODE TO URINATE AND BACK INTO HER BED. HELPED PATIENT REPOSITION HERSELF. O2 2LPM VIA NC IN PLACE. SAFETY MEASURES OBSERVED AT ALL TIMES. NO EPISODE OF FALL NOTED. WILL CONTINUE TO MONITOR.
[2020-01-27] MEDS: ALBUTEROL SULFATE/IPRATROPIU 3 ML SOL IH SCH ×6 (03:00→23:00)
[2020-01-27] MEDS: HYDROcodone/APAP 10/325 MG 1 TAB TAB PO SCH ×3 (05:06→21:10)
[2020-01-27] MEDS: PIPERACILLIN/TAZOBACTAM 3.375 GM in DEXTROSE 5% 50 ML IV SCH ×3 (05:07→21:45)
--- NOTE | 2020-01-27 05:10 | NUR ---
SCHEDULED MEDICATIONS GIVEN. PATIENT IN BED RESTING. HOB ELEVATED. ON O2 2LPM VIA NC. RESPIRATIONS EVEN AND UNLABORED. DENIES ANY PAIN OR DISCOMFORT AT THIS TIME. SAFETY MEASURES IN PLACE. BED IN LOW POSITION, SIDE RAILS UP, CALL LIGHT WITHIN REACH. KEPT COMFORTABLE. WILL CONTINUE TO MONITOR.
[2020-01-27] MEDS: INSULIN LISPRO SLIDING SCALE 100 UNITS/ML VIAL SUBQ PRN ×3 (06:10→20:58)
[2020-01-27] MEDS: BLOOD GLUCOSE MONITORING 1 DEV DEV FS SCH ×4 (06:25→21:04)
--- NOTE | 2020-01-27 07:25 | NUR ---
ENDORSED PATIENT TO DAY SHIFT NURSE. PLAN OF CARE DISCUSSED. PATIENT IN STABLE CONDITION. NO COMPLAINS MADE. IVF INFUSING WELL. KEPT COMFORTABLE. SAFETY MEASURES IN PLACE.
--- NOTE | 2020-01-27 07:26 | NUR ---
Received report from pm nurse Delbert. Pt assistance to bedside commode with moderate assist to void, pericare provided, then assisted back to bed. No SOB, no c/o discomfort at this time, respirations even & nonlabored on O2 @ 2Lpm via n/c. Right shoulder IV 22G intact with ongoing NS @ 40ml/h. Call light within reach.
[2020-01-27] MEDS: BUDESONIDE 0.5 MG/2 ML NEBU INH SCH ×2 (07:30→19:16)
[2020-01-27 08:00] VITALS: BP 145/67
[2020-01-27 08:24] LABS: BASOPHILS % (AUTO) 0.3 % (0.0-2.0); HEMOGLOBIN 8.2 g/dL (12.0-16.0); LYMPHOCYTES # (AUTO) 0.7 K/uL (2.5-16.5); MEAN CORPUSCULAR HEMOGLOBIN 22 pg (27-31); MEAN CORPUSCULAR HGB CONC 30 g/dL (33-37); MEAN CORPUSCULAR VOLUME 73.9 fL (80-94); MONOCYTES # (AUTO) 0.4 K/uL (0.8-1.0); MONOCYTES % (AUTO) 4.5 % (1.7-9.3); NEUTROPHILS # (AUTO) 8.2 K/uL (1.8-7.7); PLATELET COUNT (AUTO) 331 K/uL (140-450); RED BLOOD CELL COUNT(AUTO) 3.65 MIL/uL (4.20-5.40); RED CELL DISTRIBUTION WIDTH 17.7 % (11.6-13.7); WHITE BLOOD COUNT (AUTO) 9.4 K/uL (4.8-10.8)
[2020-01-27 08:37] LABS: ANION GAP 11.8 (8-16); CARBON DIOXIDE 29.6 mmol/L (21-32); CREATININE 0.9 mg/dL (0.6-1.3); POTASSIUM 4.4 mmol/L (3.5-5.1)
[2020-01-27] MEDS: methylPREDNISolone SS 40 MG/ML VIAL IVP SCH ×2 (08:47→21:40)
[2020-01-27] MEDS: GABAPENTIN 300 MG CAP PO SCH ×3 (08:48→17:03)
[2020-01-27] MEDS: POTASSIUM CHLORIDE 10 MEQ TABER PO SCH (08:48)
[2020-01-27] MEDS: metFORMIN 500 MG TAB PO SCH ×2 (08:48→17:04)
[2020-01-27] MEDS: FUROSEMIDE 40 MG TAB PO SCH (08:49)
[2020-01-27] MEDS: CALCIUM CARB/VIT-D 500 MG/200 IU 1 TAB PO SCH (08:49)
[2020-01-27] MEDS: risperiDONE 1 MG TAB PO SCH (08:49)
[2020-01-27] MEDS: DOCUSATE SODIUM 100 MG GELCAP PO SCH ×2 (08:49→21:00)
[2020-01-27] MEDS: LANSOPRAZOLE 30 MG CAPDR PO SCH (08:49)
[2020-01-27] MEDS: FERROUS SULFATE 325 MG TABEC PO SCH ×2 (08:49→21:08)
[2020-01-27] MEDS: DULoxetine 30 MG CAPDR PO SCH (08:50)
[2020-01-27] MEDS: MAGNESIUM OXIDE 400 MG TAB PO SCH (08:50)
[2020-01-27] MEDS: DOCUSATE SOD/SENNA 50/8.6 MG 1 TAB PO SCH (09:00)
[2020-01-27] MEDS: APIXABAN 2.5 MG TAB PO SCH ×2 (09:00→21:01)
--- NOTE | 2020-01-27 09:00 | NUR ---
Pt refused pericolace, states she already had a soft BM today. Educated on benefits of routine bowel regimen. Pt verbalized understanding but cont to refuse pericolace.
[2020-01-27 09:12] LABS: LYMPHOCYTES % (AUTO) 7.7 % (20.5-51.1); NEUTROPHILS % (AUTO) 87.5 % (42.2-75.2)
--- NOTE | 2020-01-27 10:10 | NUR ---
DISCHARGE PLANNING: THIS IS A 64 Y/O FEMALE PATIENT FROM [facility], WHO WAS BROUGHT IN DUE TO SHORTNESS OF BREATH X2 WEEKS. PAST MEDICAL HISTORY INCLUDE BIPOLAR, COPD, ANXIETY, DIABETES AND ASTHMA. INITIAL DIAGNOSIS OF CHF EXACERBATION AND UTI. CURRENT LABS INCLUDE WBC 9.4, H/H 8.2/27.0, NA/K 140/4.4, BUN/CREA 16/0.9, LACTIC ACID ON ADMISSION 2.6 AND LATES 1.5. STOOL NEGATIVE OCCULT BLOOD. NO MRSA. BLOOD C/S NO GROWTH AFTER 48 HOURS. URINE C/S SHOWED PRELIMINARY RESULTS OF GRAM NEGATIVE RODS. ON SOLU-MEDROL, LASIX PO AND BREATHING TREATMENT. ON ZOSYN. PULMO AND CARDIO CONSULTS IN PLACE. CXR ON ADMISSION SHOWED PULMONARY VASCULAR CONGESTION AND AIRSPACE/INTERSTITIAL EDEMA AND TRACE BILATERAL PLEURAL EFFUSIONS. LATEST CXR SHOWED WORSENING RIGHT LOWER LOBE ATELECTASIS/CONSOLIDATION. DC PLAN BACK TO [facility] ONCE STABLE. Addendum: 01/28/20 at 1635 by Terri Moscoso CM CONTACTED [employer] PONCE VAUGHAN AT [phone], SHE STATED CIPRIANO HAS THIS PATIENT AND HER PHONE NUMBER IS [phone]. CONTACTED THE PROVIDED NUMBER, NO ANSWER. LEFT MESSAGE. ORDER AND CLINICALS FAXED TO [phone]. RECEIVED A CALL FROM EVENTS SPECIALIST CIPRIANO OF [employer], STATING THAT SHE HAVE NOT RECEIVED THE ORDER. I INFORMED HER THAT I FAXED IT ALREADY AND WILL FAX IT OVER AGAIN.
[2020-01-27] MEDS: NACL 0.9% 1,000 ML IV SCH (11:25)
--- NOTE | 2020-01-27 11:40 | NUR ---
Pt's sister Carol on the phone, wanting to speak with patient. Call transferred to pt's room.
--- NOTE | 2020-01-27 14:58 | NUR ---
Pt asleep in bed with HOB at 45. Respirations even & nonlabored on O2 2Lpm via n/c. Call light within reach.
[2020-01-27 16:00] VITALS: BP 127/62
--- NOTE | 2020-01-27 16:27 | NUR ---
Charge nurse notified of urine culture result (MDRO Klebsiella p). Contact isolation precautions initiated.
--- NOTE | 2020-01-27 19:20 | NUR ---
RECEIVED REPORT FORM CALISTA EWING DAYSHIFT NURSE AT BEDSIDE FOR CONTINUITY OF CARE, PT IN STABLE CONDITION. PT IS AOX3 SITTING UP IN BED WITH NO S/S OF PAIN OR DISTRESS NOTED. PT HAS NORMAL SALINE RUNNING AT 40MLS/HR VIA R SHOULDER 22G. PT HAS N/C AT 2 LITERS. ALL FALLS PRECAUTIONS IN PLACE.
--- NOTE | 2020-01-27 19:22 | NUR ---
RECEIVED REPORT FROM AM SHIFT. PATIENT WAS RESTING IN BED WITH HOB > 30 DEGREES. PATIENT IN NO APPARENT RESPIRATORY DISTRESS AT THIS TIME: RR 18, HR 95, SPO2 94% ON 2L NASAL CANNULA, AND COARSE BREATH SOUNDS BILATERALLY. HHN TX GIVEN ORDERED, AND PATIENT TOLERATED TX WELL WITH NO ADVERSE REACTION. PATIENT WAS INFORMED TO CALL RN OR STRUCTURED CABLING TECHNICIAN FOR PRN TX WHEN EXPERIENCING SOB. WILL CONTINUE TO MONITOR PATIENT.
--- NOTE | 2020-01-27 20:00 | NUR ---
PT IN BED AOX4 , SHE WAS ASSISTED TO TOILET AND BACK TO BED. IV SITE PATENT AND RUNNING FLUID ORDERED. V/S FOLLOWS; T 98.5 P 103 R 18 B/P 112/64 02 91% ON 2 LITERS VIA N/C. FINGERSTICK IS 178. WILL PROVIDE S/S COVERAGE. ALL UNIVERSAL PRECAUTIONS IN PLACE.
--- NOTE | 2020-01-27 21:00 | NUR ---
PT GIVEN 2 UNITS OF HUMALOG COVERAGE PROVIDED. PT ALSO GIVEN ALL ORDERED MEDICATION EXCEPT COLACE. PT DECLINED COLACE SAYING THAT SHE HAS NOT BEEN HAVING TROUBLE HAVING BOWEL MOVEMENTS. PT ALSO GIVEN IV ABT ZOSYN FOR UTI. ALL FALLS PRECAUTIONS IN PLACE AND ALL REQUESTS ATTENDED BY STAFF.
[2020-01-27] MEDS: ATORVASTATIN 20 MG TAB PO SCH (21:08)
[2020-01-27] MEDS: traZODone 50 MG TAB PO SCH (21:09)
[2020-01-27] MEDS: OLANZapine 5 MG TAB PO SCH (21:12)
--- NOTE | 2020-01-27 23:31 | NUR ---
PATIENT REFUSED HHN TX AT THIS TIME. PATIENT SLEEPING AND APPEARS TO BE IN NO RESPIRATORY DISTRESS AT THIS MOMENT.
[2020-01-28] VITALS: BP 126/56
--- NOTE | 2020-01-28 | NUR ---
PT IN BED AL REQUESTED NEEDS ATTENDED BY STAFF. N/C IN PLACE AND IV SITE ON RIGHT SHOULDER INTACT AND ASYMPTOMATIC RUNNING FLUIDS ORDERED. V/S FOLLOWS; T 97.5 P 76 R 18 B/P 126/56 02 95% WITH 2 LITERS VIA N/C. ALL FALLS PRECAUTIONS IN PLACE.
[2020-01-28] MEDS: ALBUTEROL SULFATE/IPRATROPIU 3 ML SOL IH SCH ×4 (03:00→14:50)
[2020-01-28] MEDS: HYDROcodone/APAP 10/325 MG 1 TAB TAB PO SCH ×2 (05:08→12:30)
[2020-01-28] MEDS: PIPERACILLIN/TAZOBACTAM 3.375 GM in DEXTROSE 5% 50 ML IV SCH ×2 (05:10→12:30)
--- NOTE | 2020-01-28 05:15 | NUR ---
PT GIVEN ORDERED NORCO AND IV ABT ZOSYN EDUCATION PROVIDED REGARDING ORDERED MEDS. PT VERBALIZED ACKNOWLEDGEMENT.
[2020-01-28] MEDS: BLOOD GLUCOSE MONITORING 1 DEV DEV FS SCH ×3 (05:48→16:30)
[2020-01-28] MEDS: INSULIN LISPRO SLIDING SCALE 100 UNITS/ML VIAL SUBQ PRN ×2 (05:55→18:04)
[2020-01-28] MEDS: BUDESONIDE 0.5 MG/2 ML NEBU INH SCH (06:30)
[2020-01-28 06:49] LABS: BASOPHILS % (AUTO) 0.1 % (0.0-2.0); HEMATOCRIT 27.1 % (36-48); HEMOGLOBIN 8.2 g/dL (12.0-16.0); LYMPHOCYTES # (AUTO) 0.7 K/uL (2.5-16.5); LYMPHOCYTES % (AUTO) 9.3 % (20.5-51.1); MEAN CORPUSCULAR HEMOGLOBIN 22 pg (27-31); MEAN CORPUSCULAR HGB CONC 30 g/dL (33-37); MEAN CORPUSCULAR VOLUME 73.8 fL (80-94); MONOCYTES # (AUTO) 0.2 K/uL (0.8-1.0); MONOCYTES % (AUTO) 3.1 % (1.7-9.3); NEUTROPHILS # (AUTO) 6.8 K/uL (1.8-7.7); NEUTROPHILS % (AUTO) 87.5 % (42.2-75.2); PLATELET COUNT (AUTO) 304 K/uL (140-450); RED BLOOD CELL COUNT(AUTO) 3.67 MIL/uL (4.20-5.40); RED CELL DISTRIBUTION WIDTH 17.6 % (11.6-13.7); WHITE BLOOD COUNT (AUTO) 7.7 K/uL (4.8-10.8)
--- NOTE | 2020-01-28 07:25 | NUR ---
RECIEVED PT. FROM PATENT [facility]SEC[facility]. PT. IS ALERT AND AWAKE IN BED. NO SIGNS OF DISTRESS NOTED. IV IS ON THE RIGHT SHOULDER 20G WITH NS RUNNING AT 40ML/HR. PT. IS ON 2L O2 VIA NC WITH O2 STAT OF 95%. PT. CAN AMBULATE WITH ASSIST TOWARDS BEDSIDE COMMODE. FALL AND SEIZURE PRECAUTIONS IN PLACE. PLAN OF CARE DISCUSSED. WILL CONTINUE TO MONITOR.
[2020-01-28 07:41] LABS: ANION GAP 11.9 (8-16); CARBON DIOXIDE 30.7 mmol/L (21-32); POTASSIUM 4.6 mmol/L (3.5-5.1)
[2020-01-28 08:00] VITALS: BP 132/77
[2020-01-28] MEDS: DOCUSATE SODIUM 100 MG GELCAP PO SCH (09:00)
[2020-01-28] MEDS: DOCUSATE SOD/SENNA 50/8.6 MG 1 TAB PO SCH (09:00)
--- NOTE | 2020-01-28 09:10 | NUR ---
MORNING MEDICATIONS GIVEN. NO SIGNS OF DISTRESS NOTED. WILL CONTINUE TO MONITOR.
[2020-01-28] MEDS: MAGNESIUM OXIDE 400 MG TAB PO SCH (09:18)
[2020-01-28] MEDS: methylPREDNISolone SS 40 MG/ML VIAL IVP SCH (09:18)
[2020-01-28] MEDS: LANSOPRAZOLE 30 MG CAPDR PO SCH (09:19)
[2020-01-28] MEDS: CALCIUM CARB/VIT-D 500 MG/200 IU 1 TAB PO SCH (09:20)
[2020-01-28] MEDS: GABAPENTIN 300 MG CAP PO SCH ×3 (09:20→18:05)
[2020-01-28] MEDS: risperiDONE 1 MG TAB PO SCH (09:21)
[2020-01-28] MEDS: POTASSIUM CHLORIDE 10 MEQ TABER PO SCH (09:21)
[2020-01-28] MEDS: FERROUS SULFATE 325 MG TABEC PO SCH (09:22)
[2020-01-28] MEDS: metFORMIN 500 MG TAB PO SCH ×2 (09:22→18:05)
[2020-01-28] MEDS: DULoxetine 30 MG CAPDR PO SCH (09:22)
[2020-01-28] MEDS: FUROSEMIDE 40 MG TAB PO SCH (09:22)
[2020-01-28] MEDS: APIXABAN 2.5 MG TAB PO SCH (09:25)
[2020-01-28] MEDS ORDERED: BENZONATATE 100 MG CAPLF PO SCH (09:30)
[2020-01-28] MEDS ORDERED: guaiFENesin 600 MG TABER PO SCH (10:00)
--- NOTE | 2020-01-28 11:45 | NUR ---
PT. REFUSED BLOOD SUGAR CHECK. EDUCATED ON RISK AND BENEFITS. PT. IS AWARE AND STILL REFUSED.
[2020-01-28] MEDS ORDERED: LACT10CA1 PO (12:33)
[2020-01-28] MEDS ORDERED: BENZ-196 PO (12:33)
[2020-01-28] MEDS ORDERED: CEFD300C3 PO (12:33)
[2020-01-28] MEDS ORDERED: METH4TAB1 PO (12:33)
--- NOTE | 2020-01-28 14:20 | NUR ---
DR. COLLINS IN THE ROOM PER REQUEST OF THE PT. AND EXPLAINED THE REASON FOR DISCHARGED. PT. AGREES FOR DISCHARGE. WILL FOLLOW THROUGH
[2020-01-28 15:32] VITALS: BP 132/77
[2020-01-28 16:00] VITALS: BP 134/85
--- NOTE | 2020-01-28 17:50 | NUR ---
GIVEN INSULIN COVERAGE FOR BLOOD SUGAR OF 180. NO SIGNS OF DISTRESS NOTED. WILL CONTINUE TO MONITOR.
--- NOTE | 2020-01-28 18:15 | NUR ---
PT. IS DISCHARGED BY WHEELCHAIR TO [facility].
== END 2020-01-28 18:15 | DRG 137 ==
LOC: MED 17:45 → MTU 20:18
PROVIDERS: ADMIT General Practice; ATTEND General Practice
DX: J69.0 Pneumonitis due to inhalation of food and vomit (principal); N17.0 Acute kidney failure with tubular necrosis; J96.01 Acute respiratory failure with hypoxia; I50.43 Acute on chronic combined systolic (congestive) and diastolic (congestive) heart failure; E44.0 Moderate protein-calorie malnutrition; D68.59 Other primary thrombophilia; E11.319 Type 2 diabetes mellitus with unspecified diabetic retinopathy without macular edema; E11.40 Type 2 diabetes mellitus with diabetic neuropathy, unspecified; E83.42 Hypomagnesemia; E66.9 Obesity, unspecified; J44.1 Chronic obstructive pulmonary disease with (acute) exacerbation; G40.909 Epilepsy, unspecified, not intractable, without status epilepticus; F31.9 Bipolar disorder, unspecified; F41.9 Anxiety disorder, unspecified; G47.00 Insomnia, unspecified; K21.9 Gastro-esophageal reflux disease without esophagitis; E78.5 Hyperlipidemia, unspecified; D50.9 Iron deficiency anemia, unspecified; N39.0 Urinary tract infection, site not specified; Z68.33 Body mass index [BMI] 33.0-33.9, adult; Z71.3 Dietary counseling and surveillance; Z87.891 Personal history of nicotine dependence; Z88.8 Allergy status to other drugs, medicaments and biological substances; Z79.899 Other long term (current) drug therapy; Z83.3 Family history of diabetes mellitus; Z82.49 Family history of ischemic heart disease and other diseases of the circulatory system
CPT/HCPCS: 36415; 36600; 71045; 80048; 80053; 81001; 82150; 82272; 82607; 82728; 82746; 82803; 82948; 83036; 83540; 83605; 83690; 83735; 83880; 84100; 84439; 84443; 84484; 85025; 85045; 85610; 85730; 87040; 87081; 87086; 87186; 87804; 92610; 93005; 93970; 94640; 96365; 96375; 97112; 97116; 97161-GP; 97530; 99285; J1644; J1815; J1885; J1940; J1956; J2270; J2405; J2543; J2916; J2920; J3475; J7030; J7042; J7060; J7626; Q0092